=== PATIENT | male | born 1955 | race African-American/Black ===

== ENCOUNTER 2021-11-29 22:36 | Emergency (ER) | payer MEDICAID, OTHER ==
[~2021-11-29] VITALS: Ht 172.7 cm; Wt 155.0 kg
[2021-11-30 06:15] LABS: Basophils # (auto) 0 10 ^3/uL (0-0.2); Basophils % (auto) 0.5 % (0.0-2.0); Eosinophils # (auto) 0.3 10 ^3/uL (0-0.8); Eosinophils % (auto) 3.2 % (0.0-7.0); Hematocrit 41.3 % (41.0-53.0); Hemoglobin 13.9 g/dL (13.5-17.5); Lymphocytes # (auto) 2.4 10 ^3/uL (0.4-5.4); Lymphocytes % (auto) 30.5 % (10.0-50.0); Mean Corpuscular Hemoglobin 31.5 pg (28.0-32.0); Mean Corpuscular Hgb Conc. 33.7 g/dL (32.0-36.0); Mean Corpuscular Volume 93.4 fL (80.0-100.0); Monocytes # (auto) 0.5 10 ^3/uL (0-1.3); Neutrophils # (auto) 4.6 10 ^3/uL (1.6-8.6); Neutrophils % (auto) 58.8 % (37.0-80.0); Nucleated Red Blood Cells % 0.1 %; Red Blood Cells 4.42 10^6/uL (4.5-5.90); Red Cell Distribution Width 14.4 % (11.8-14.3); White Blood Cell 7.8 10^3/uL (4.4-10.8)
[2021-11-30 06:26] LABS: Potassium 4.2 mmol/L (3.5-5.1)
[2021-11-30 06:34] LABS: Albumin 2.9 g/dL (3.4-5.0); BUN/Creatinine Ratio 13.9; Bilirubin, Total 0.5 mg/dL (0.2-1.0); Calcium 8.6 mg/dL (8.5-10.1); Total Protein 6.5 g/dL (6.4-8.2)
[2021-11-30 08:40] LABS: Urine Bacteria NONE SEEN /hpf (None Seen); Urine Blood Negative /uL (Negative); Urine Mucus FEW (None Seen); Urine WBC 1 /hpf (0 - 3)
[2021-11-30] MEDS ORDERED: AZIT500T PO (12:36)
[2021-11-30] MEDS ORDERED: HYDR-4798 PO (12:36)
[2021-11-30] MEDS ORDERED: DEXT1SYP9 PO (12:36)
[2021-11-30] MEDS ORDERED: CARI250T PO (12:36)
[2021-11-30] MEDS ORDERED: ALBUAER3 IN (12:36)
[2021-11-30 13:07] VITALS: BP 148/84
== END 2021-11-30 12:38 | disposition left against medical advice (07) ==
LOC: ER 22:38 → EDBD 22:38 → ER 11-30 12:38
DX: G89.29 Other chronic pain (principal); M54.50 Low back pain, unspecified; J45.901 Unspecified asthma with (acute) exacerbation; K42.9 Umbilical hernia without obstruction or gangrene; E46 Unspecified protein-calorie malnutrition; E66.01 Morbid (severe) obesity due to excess calories; R07.89 Other chest pain; I11.0 Hypertensive heart disease with heart failure; I50.9 Heart failure, unspecified; E11.9 Type 2 diabetes mellitus without complications; E78.5 Hyperlipidemia, unspecified; F17.210 Nicotine dependence, cigarettes, uncomplicated; Z68.43 Body mass index [BMI] 50.0-59.9, adult
CPT/HCPCS: 36415; 71046; 74176; 80053; 81001; 84484; 85025

== ENCOUNTER 2021-12-06 04:24 | Emergency (ER) | payer MEDICAID ==
[~2021-12-06] VITALS: Ht 167.6 cm; Wt 147.6 kg
[~2021-12-06 04:24] MED LIST: ALBUAER3 IN; AZIT500T PO; CARI250T PO; DEXT1SYP9 PO; HYDR-4798 PO
[2021-12-06 05:12] VITALS: BP 113/63
== END 2021-12-06 07:15 | disposition left against medical advice (07) ==
LOC: ER 04:24
DX: M54.9 Dorsalgia, unspecified (principal); Z53.21 Procedure and treatment not carried out due to patient leaving prior to being seen by health care provider

== ENCOUNTER 2021-12-16 22:28 | Emergency (ER) | payer MEDICAID ==
[~2021-12-16] VITALS: Ht 167.6 cm; Wt 147.2 kg
[2021-12-17 02:25] LABS: Basophils # (auto) 0.1 10 ^3/uL (0-0.2); Basophils % (auto) 0.7 % (0.0-2.0); Eosinophils # (auto) 0.3 10 ^3/uL (0-0.8); Eosinophils % (auto) 3.2 % (0.0-7.0); Hematocrit 41.9 % (41.0-53.0); Hemoglobin 13.8 g/dL (13.5-17.5); Lymphocytes # (auto) 2.5 10 ^3/uL (0.4-5.4); Lymphocytes % (auto) 27.6 % (10.0-50.0); Mean Corpuscular Hemoglobin 30.9 pg (28.0-32.0); Mean Corpuscular Hgb Conc. 32.9 g/dL (32.0-36.0); Mean Corpuscular Volume 93.8 fL (80.0-100.0); Monocytes # (auto) 0.6 10 ^3/uL (0-1.3); Monocytes % (auto) 6.1 % (0.0-12.0); Neutrophils # (auto) 5.8 10 ^3/uL (1.6-8.6); Neutrophils % (auto) 62.4 % (37.0-80.0); Red Blood Cells 4.46 10^6/uL (4.5-5.90); Red Cell Distribution Width 14.3 % (11.8-14.3); White Blood Cell 9.2 10^3/uL (4.4-10.8)
[2021-12-17 02:46] LABS: Albumin 2.9 g/dL (3.4-5.0); BUN/Creatinine Ratio 17.5; Calcium 8.2 mg/dL (8.5-10.1); Potassium 4.3 mmol/L (3.5-5.1)
[2021-12-17 02:49] LABS: Bilirubin, Total 0.5 mg/dL (0.2-1.0); Total Protein 6.1 g/dL (6.4-8.2)
[2021-12-17] MEDS ORDERED: MORPHINE SULFATE 4 MG/ML SYR/VIAL IV ONE (03:15)
[2021-12-17 03:18] LABS: Urine Bacteria NONE SEEN /hpf (None Seen); Urine Blood Negative /uL (Negative); Urine Specific Gravity 1.015 (1.001-1.035); Urine WBC <1 /hpf (0 - 3)
[2021-12-17 03:28] VITALS: BP 146/72
== END 2021-12-17 04:47 | disposition home or self-care (01) ==
LOC: ER 22:28
DX: R06.00 Dyspnea, unspecified (principal); G89.29 Other chronic pain; M54.9 Dorsalgia, unspecified; I11.0 Hypertensive heart disease with heart failure; I50.9 Heart failure, unspecified; E11.9 Type 2 diabetes mellitus without complications; E78.5 Hyperlipidemia, unspecified; J45.909 Unspecified asthma, uncomplicated; F17.210 Nicotine dependence, cigarettes, uncomplicated; Z79.2 Long term (current) use of antibiotics; Z79.899 Other long term (current) drug therapy; Z88.8 Allergy status to other drugs, medicaments and biological substances
CPT/HCPCS: 36415; 71045; 80053; 81001; 83880; 84484; 85025; 93005

== ENCOUNTER 2021-12-27 22:01 | Emergency (ER) | payer MEDICAID ==
[~2021-12-27] VITALS: Ht 167.6 cm; Wt 146.4 kg
[2021-12-27 22:35] VITALS: BP 113/63
== END 2021-12-28 01:51 | disposition home or self-care (01) ==
LOC: ER 22:06
DX: S40.021A Contusion of right upper arm, initial encounter (principal); I11.0 Hypertensive heart disease with heart failure; I50.9 Heart failure, unspecified; E78.5 Hyperlipidemia, unspecified; J45.909 Unspecified asthma, uncomplicated; F17.210 Nicotine dependence, cigarettes, uncomplicated; Z88.6 Allergy status to analgesic agent; W01.0XXA Fall on same level from slipping, tripping and stumbling without subsequent striking against object, initial encounter; Y93.89 Activity, other specified; Y92.89 Other specified places as the place of occurrence of the external cause; Y99.8 Other external cause status
CPT/HCPCS: 73090; 73110; 73130

== ENCOUNTER 2022-01-03 20:43 | Emergency (ER) | payer MEDICAID ==
[~2022-01-03] VITALS: Ht 167.6 cm; Wt 147.0 kg
[2022-01-04] MEDS ORDERED: ONDANSETRON ODT 4 MG TAB PO ONE (02:30)
[2022-01-04] MEDS ORDERED: HYDROcodone-ACET 10/325MG TAB PO ONE (02:30)
[2022-01-04 05:00] VITALS: BP 135/78
== END 2022-01-04 06:07 | disposition home or self-care (01) ==
LOC: ER 20:43
DX: M54.50 Low back pain, unspecified (principal); R05.9 Cough, unspecified; R07.89 Other chest pain; I11.0 Hypertensive heart disease with heart failure; I50.9 Heart failure, unspecified; E11.9 Type 2 diabetes mellitus without complications; E78.5 Hyperlipidemia, unspecified; F17.210 Nicotine dependence, cigarettes, uncomplicated; Z79.2 Long term (current) use of antibiotics; Z79.899 Other long term (current) drug therapy; Z88.8 Allergy status to other drugs, medicaments and biological substances
CPT/HCPCS: 71045; 99283; Q0162

== ENCOUNTER 2022-04-20 23:43 | Inpatient (IN) | payer MEDICAID ==
[~2022-04-20] VITALS: Ht 320 cm; Wt 123.0 kg
[2022-04-21 00:02] LABS: Basophils # (auto) 0.1 10 ^3/uL (0-0.2); Basophils % (auto) 0.5 % (0.0-2.0); Eosinophils # (auto) 0.1 10 ^3/uL (0-0.8); Eosinophils % (auto) 0.7 % (0.0-7.0); Hematocrit 45.6 % (41.0-53.0); Hemoglobin 15.1 g/dL (13.5-17.5); Lymphocytes # (auto) 2.2 10 ^3/uL (0.4-5.4); Lymphocytes % (auto) 18.1 % (10.0-50.0); Mean Corpuscular Hemoglobin 31.2 pg (28.0-32.0); Mean Corpuscular Hgb Conc. 33.1 g/dL (32.0-36.0); Mean Corpuscular Volume 94.3 fL (80.0-100.0); Monocytes # (auto) 0.9 10 ^3/uL (0-1.3); Monocytes % (auto) 7.6 % (0.0-12.0); Neutrophils % (auto) 73.1 % (37.0-80.0); Red Blood Cells 4.84 10^6/uL (4.5-5.90); Red Cell Distribution Width 13.7 % (11.8-14.3); White Blood Cell 12.4 10^3/uL (4.4-10.8)
[2022-04-21 00:17] LABS: INR 0.95 (0.9-1.15); Partial Thromboplastin Time 34.8 sec (24.6-33.4)
[2022-04-21 00:20] LABS: Albumin 3.1 g/dL (3.4-5.0); Calcium 8.9 mg/dL (8.5-10.1); Magnesium 2.3 mg/dL (1.6-2.6); Potassium 4.2 mmol/L (3.5-5.1)
[2022-04-21 00:23] LABS: Bilirubin, Total 0.4 mg/dL (0.2-1.0); Total Protein 6.7 g/dL (6.4-8.2)
[2022-04-21] MEDS ORDERED: FUROSEMIDE 100 MG/10ML VIAL IV ONE (01:15)
[2022-04-21] MEDS ORDERED: ALBUTEROL SULF 2.5 MG/0.5ML(0.5%) NEB SOLN NEB ONE (01:15)
[2022-04-21] MEDS ORDERED: methylPREDNISolone SOD SUCC 125 MG/2 ML VL IV ONE (01:15)
[2022-04-21] MEDS ORDERED: IPRATROPIUM BROM 0.5 MG/2.5ML INH SOL NEB ONE (01:15)
[2022-04-21] MEDS ORDERED: ALBUTEROL MEDNEB 2.5 mg/3ml NEB ONE (01:18)
[2022-04-21] MEDS ORDERED: ALBUTEROL SULF 2.5 MG/0.5ML(0.5%) NEB SOLN NEB PRN (03:30)
[2022-04-21] MEDS ORDERED: ACETAMINOPHEN 325 MG TAB PO PRN (03:30)
[2022-04-21] MEDS ORDERED: IPRATROPIUM BROM 0.5 MG/2.5ML INH SOL NEB PRN (03:30)
[2022-04-21] MEDS ORDERED: ONDANSETRON HCL 4 MG/2 ML VIAL IV PRN (03:30)
[2022-04-21] MEDS ORDERED: DEXTROSE (50%) 50ML SYRG IV PRN (03:30)
[2022-04-21 04:16] LABS: Basophils # (auto) 0.2 10 ^3/uL (0-0.2); Basophils % (auto) 1.4 % (0.0-2.0); Eosinophils # (auto) 0.1 10 ^3/uL (0-0.8); Eosinophils % (auto) 1.2 % (0.0-7.0); Hematocrit 43.5 % (41.0-53.0); Hemoglobin 14.8 g/dL (13.5-17.5); Lymphocytes # (auto) 3.1 10 ^3/uL (0.4-5.4); Lymphocytes % (auto) 27.6 % (10.0-50.0); Mean Corpuscular Hemoglobin 31.5 pg (28.0-32.0); Mean Corpuscular Volume 92.9 fL (80.0-100.0); Monocytes # (auto) 0.7 10 ^3/uL (0-1.3); Monocytes % (auto) 6.2 % (0.0-12.0); Neutrophils # (auto) 7.1 10 ^3/uL (1.6-8.6); Neutrophils % (auto) 63.6 % (37.0-80.0); Nucleated Red Blood Cells % 0.1 %; Red Blood Cells 4.69 10^6/uL (4.5-5.90); Red Cell Distribution Width 13.8 % (11.8-14.3); White Blood Cell 11.1 10^3/uL (4.4-10.8)
[2022-04-21] MEDS ORDERED: NITROGLYCERIN 0.4 MG SL TAB SL PRN (06:00)
[2022-04-21] MEDS ORDERED: cefTRIAXone 1GM/50ML D5W 50 ML IV ONE (06:00)
[2022-04-21] MEDS ORDERED: MORPHINE SULFATE INJ 2 MG/ml SYRG IV PRN (06:00)
[2022-04-21 06:50] LABS: Hematocrit 44.8 % (41.0-53.0); Hemoglobin 15.3 g/dL (13.5-17.5); Mean Corpuscular Hemoglobin 31.7 pg (28.0-32.0); Mean Corpuscular Hgb Conc. 34.2 g/dL (32.0-36.0); Mean Corpuscular Volume 92.9 fL (80.0-100.0); Red Blood Cells 4.83 10^6/uL (4.5-5.90); Red Cell Distribution Width 13.6 % (11.8-14.3); White Blood Cell 11.2 10^3/uL (4.4-10.8)
[2022-04-21 06:57] LABS: Albumin 3.1 g/dL (3.4-5.0); Calcium 8.7 mg/dL (8.5-10.1); Potassium 4.6 mmol/L (3.5-5.1)
[2022-04-21 06:59] LABS: Bilirubin, Total 0.4 mg/dL (0.2-1.0); Total Protein 6.8 g/dL (6.4-8.2)
[2022-04-21 07:38] LABS: Basophils % (manual) 0 (0.0-2.0); Blast Cells 0; Eosinophils % (manual) 0 (0-7); Metamyelocytes % 0; Myelocytes % 0; Promyelocytes % 0; Reactive Lymphocytes 0
[2022-04-21] MEDS: SODIUM CHLOR 0.9% PF (SALINE LOCK) 10ML VIAL/SYR IV SCH ×2 (09:18→14:42)
[2022-04-21] MEDS: cefTRIAXone 1GM/50ML D5W 50 ML IV SCH (09:31)
[2022-04-21] MEDS: ACCU-CHEK COMFORT CURVE STRIP VI SCH ×3 (09:32→18:38)
[2022-04-21] MEDS: methylPREDNISolone SOD SUCC 40 MG/ML VL IV SCH ×2 (09:34→14:46)
[2022-04-21] MEDS: InsuLIN REG 1unit/0.01ml Soln (100units/ml) SC SCH ×3 (09:36→18:46)
[2022-04-21] MEDS ORDERED: FAMOTIDINE (10MG/ML) 2ML VL IV SCH (10:00)
[2022-04-21] MEDS: FUROSEMIDE 40 MG/4 ML VIAL IV SCH (10:37)
[2022-04-21] MEDS: ENOXAPARIN SOD 40 MG/0.4 ML SYRINGE SC SCH (10:37)
[2022-04-21] MEDS: HYDROcodone-ACET 5/325MG TAB PO PRN ×2 (11:20→18:46)
[2022-04-21 14:35] LABS: Band Neutrophils % (manual) 10; Lymphocytes % (manual) 6 (10.0-50.0); Monocytes % (manual) 3 (0-12)
[2022-04-21] MEDS: guaiFENesin 200 MG/10 ML UD PO SCH (18:45)
[2022-04-22] VITALS (8 sets, daily range): BP systolic 124–146; BP diastolic 55–81
[2022-04-22] MEDS: HYDROcodone-ACET 5/325MG TAB PO PRN ×3 (00:28→22:08)
[2022-04-22] MEDS: ACCU-CHEK COMFORT CURVE STRIP VI SCH ×5 (00:29→22:09)
[2022-04-22] MEDS: methylPREDNISolone SOD SUCC 40 MG/ML VL IV SCH ×4 (00:29→22:08)
[2022-04-22] MEDS: guaiFENesin 200 MG/10 ML UD PO SCH ×5 (00:29→23:53)
[2022-04-22] MEDS: InsuLIN REG 1unit/0.01ml Soln (100units/ml) SC SCH ×5 (00:34→22:12)
[2022-04-22] MEDS: SODIUM CHLOR 0.9% PF (SALINE LOCK) 10ML VIAL/SYR IV SCH ×4 (00:38→22:09)
[2022-04-22] MEDS: TROLAMINE SALICYLATE 10% TOP CREAM TOP SCH ×3 (00:38→22:09)
[2022-04-22] MEDS ORDERED: FUR20T PO (01:44)
[2022-04-22] MEDS ORDERED: METF-370 PO (01:44)
[2022-04-22] MEDS ORDERED: ATOR40TA52 PO (01:44)
[2022-04-22] MEDS ORDERED: CARI350T23 PO (01:44)
[2022-04-22] MEDS ORDERED: ASPI1TAB20 PO (01:44)
[2022-04-22] MEDS ORDERED: ALBU108A5 INH (01:45)
[2022-04-22] MEDS ORDERED: IPRAAER6 INH (01:45)
[2022-04-22] MEDS: FUROSEMIDE 40 MG/4 ML VIAL IV SCH (08:43)
[2022-04-22] MEDS: cefTRIAXone 1GM/50ML D5W 50 ML IV SCH (08:43)
[2022-04-22] MEDS: ENOXAPARIN SOD 40 MG/0.4 ML SYRINGE SC SCH (08:44)
[2022-04-22 08:47] LABS: Chloride 105 mmol/L (98-107); Potassium 4.9 mmol/L (3.5-5.1); Sodium 140 mmol/L (136-145)
[2022-04-22 09:11] LABS: Alanine Aminotransferase 13 U/L (16-61); Alkaline Phosphatase 96 U/L (45-117); Anion Gap 6 (5-15); Aspartate Aminotransferase < 3 U/L (15-37); Bilirubin, Total 0.4 mg/dL (0.2-1.0); Blood Urea Nitrogen 23 mg/dL (7-18); Calcium 8.6 mg/dL (8.5-10.1); Carbon Dioxide 29 mmol/L (21-32); GFR African American 121 mL/min; GFR Non-African American 100 mL/min; Glucose 179 mg/dL (74-106); Total Protein 6.2 g/dL (6.4-8.2)
[2022-04-22] MEDS ORDERED: ALBUTEROL MEDNEB 2.5 mg/3ml NEB ONE (09:19)
[2022-04-22] MEDS: DOCUSATE SOD 100 MG CAP PO PRN ×2 (09:36→23:57)
[2022-04-22 09:55] LABS: Hematocrit 46.4 % (41.0-53.0); Mean Corpuscular Hemoglobin 30.3 pg (28.0-32.0); Mean Corpuscular Hgb Conc. 32.3 g/dL (32.0-36.0); Mean Corpuscular Volume 93.9 fL (80.0-100.0); Red Blood Cells 4.94 10^6/uL (4.5-5.90); Red Cell Distribution Width 13.9 % (11.8-14.3); White Blood Cell 13.6 10^3/uL (4.4-10.8)
[2022-04-22 09:57] LABS: Basophils % (manual) 0 (0.0-2.0); Blast Cells 0; Eosinophils % (manual) 0 (0-7); Metamyelocytes % 0; Monocytes % (manual) 0 (0-12); Myelocytes % 0; Promyelocytes % 0; Reactive Lymphocytes 0
[2022-04-22 12:13] LABS: Band Neutrophils % (manual) 11; Lymphocytes % (manual) 4 (10.0-50.0)
[2022-04-22] MEDS ORDERED: AMOX500T86 PO (14:34)
[2022-04-22] MEDS ORDERED: PANT40T PO (14:34)
[2022-04-22] MEDS ORDERED: TROL10CR33 EX (14:34)
[2022-04-22] MEDS ORDERED: PRED20TA2 PO (14:34)
[2022-04-23] MEDS ORDERED: ALBUTEROL MEDNEB 2.5 mg/3ml NEB ONE (00:16)
[2022-04-23 04:53] VITALS: BP 144/53
[2022-04-23] MEDS: guaiFENesin 200 MG/10 ML UD PO SCH (05:51)
[2022-04-23] MEDS: methylPREDNISolone SOD SUCC 40 MG/ML VL IV SCH (05:51)
[2022-04-23] MEDS: ACCU-CHEK COMFORT CURVE STRIP VI SCH (06:01)
[2022-04-23] MEDS: HYDROcodone-ACET 5/325MG TAB PO PRN ×2 (06:01→10:11)
[2022-04-23] MEDS: SODIUM CHLOR 0.9% PF (SALINE LOCK) 10ML VIAL/SYR IV SCH (06:01)
[2022-04-23] MEDS: InsuLIN REG 1unit/0.01ml Soln (100units/ml) SC SCH (06:05)
[2022-04-23 08:29] VITALS: BP 126/102
[2022-04-23] MEDS: cefTRIAXone 1GM/50ML D5W 50 ML IV SCH ×2 (10:08→10:10)
[2022-04-23] MEDS: ENOXAPARIN SOD 40 MG/0.4 ML SYRINGE SC SCH (10:09)
[2022-04-23] MEDS: TROLAMINE SALICYLATE 10% TOP CREAM TOP SCH (10:10)
[2022-04-23] MEDS: FUROSEMIDE 40 MG/4 ML VIAL IV SCH (10:10)
[2022-04-23] MEDS: DOCUSATE SOD 100 MG CAP PO PRN (10:15)
== END 2022-04-23 13:38 | disposition home or self-care (01) | DRG 140 ==
LOC: ER 23:43 → TELE 04-21 06:04 → TELE-WESTW 04-21 22:48
PROVIDERS: ADMIT Nurse Practitioner Family; ATTEND Internal Medicine
DX: J44.0 Chronic obstructive pulmonary disease with (acute) lower respiratory infection (principal); I11.0 Hypertensive heart disease with heart failure; I50.9 Heart failure, unspecified; E11.9 Type 2 diabetes mellitus without complications; R07.89 Other chest pain; J20.9 Acute bronchitis, unspecified; Z20.822 Contact with and (suspected) exposure to COVID-19; E66.01 Morbid (severe) obesity due to excess calories; E78.5 Hyperlipidemia, unspecified; F17.210 Nicotine dependence, cigarettes, uncomplicated; E78.00 Pure hypercholesterolemia, unspecified; J44.1 Chronic obstructive pulmonary disease with (acute) exacerbation; K21.9 Gastro-esophageal reflux disease without esophagitis; Z68.1 Body mass index [BMI] 19.9 or less, adult; Z88.6 Allergy status to analgesic agent; Z88.8 Allergy status to other drugs, medicaments and biological substances
CPT/HCPCS: 36415; 36600; 76705; 80053; 82805; 82962; 83735; 83880; 84484; 85007; 85025; 85027; 85610; 85730; 87426; 93005; 94640; 96374; 96375; G0378; J0696; J1815; J3490

== ENCOUNTER 2022-04-27 21:06 | Emergency (ER) | payer MEDICAID ==
[~2022-04-27] VITALS: Ht 167.6 cm; Wt 65.8 kg
[~2022-04-27 21:06] MED LIST changes: +ALBU108A5 INH; +AMOX500T86 PO; +ASPI1TAB20 PO; +ATOR40TA52 PO; -AZIT500T PO; +CARI350T23 PO; +FUR20T PO; +IPRAAER6 INH; +METF-370 PO; +PANT40T PO; +PRED20TA2 PO; +TROL10CR33 EX
[2022-04-27] MEDS ORDERED: HYDROcodone-ACET 10/325MG TAB PO ONE (22:15)
[2022-04-27 23:50] VITALS: BP 121/68
== END 2022-04-27 23:53 | disposition home or self-care (01) ==
LOC: ER 21:06
DX: S63.501A Unspecified sprain of right wrist, initial encounter (principal); I11.0 Hypertensive heart disease with heart failure; I50.9 Heart failure, unspecified; J44.9 Chronic obstructive pulmonary disease, unspecified; E11.9 Type 2 diabetes mellitus without complications; E78.5 Hyperlipidemia, unspecified; F17.210 Nicotine dependence, cigarettes, uncomplicated; W01.0XXA Fall on same level from slipping, tripping and stumbling without subsequent striking against object, initial encounter; Y93.89 Activity, other specified; Y92.89 Other specified places as the place of occurrence of the external cause; Y99.8 Other external cause status
CPT/HCPCS: 29125; 73110

== ENCOUNTER 2022-04-30 21:46 | Emergency (ER) | payer MEDICAID ==
[~2022-04-30] VITALS: Ht 167.6 cm; Wt 145.0 kg
[2022-04-30 22:45] VITALS: BP 119/65
[2022-04-30] MEDS ORDERED: HYDROcodone-ACET 10/325MG TAB PO ONE (23:00)
== END 2022-05-01 01:31 | disposition home or self-care (01) ==
LOC: ER 21:48
DX: G89.29 Other chronic pain (principal); M54.50 Low back pain, unspecified; I11.0 Hypertensive heart disease with heart failure; I50.9 Heart failure, unspecified; J44.9 Chronic obstructive pulmonary disease, unspecified; E11.9 Type 2 diabetes mellitus without complications; E78.5 Hyperlipidemia, unspecified; Z88.6 Allergy status to analgesic agent

== ENCOUNTER 2022-05-15 22:38 | Inpatient (IN) | payer MEDICAID ==
[~2022-05-15] VITALS: Ht 167.6 cm; Wt 145.8 kg
[2022-05-16 00:13] LABS: Basophils # (auto) 0.1 10 ^3/uL (0-0.2); Basophils % (auto) 0.6 % (0.0-2.0); Eosinophils # (auto) 0.3 10 ^3/uL (0-0.8); Eosinophils % (auto) 2.6 % (0.0-7.0); Hemoglobin 14.5 g/dL (13.5-17.5); Lymphocytes # (auto) 2.7 10 ^3/uL (0.4-5.4); Lymphocytes % (auto) 22.3 % (10.0-50.0); Mean Corpuscular Hemoglobin 30.9 pg (28.0-32.0); Mean Corpuscular Volume 93.7 fL (80.0-100.0); Monocytes # (auto) 0.8 10 ^3/uL (0-1.3); Monocytes % (auto) 6.2 % (0.0-12.0); Neutrophils # (auto) 8.3 10 ^3/uL (1.6-8.6); Neutrophils % (auto) 68.3 % (37.0-80.0); Nucleated Red Blood Cells % 0.1 %; Red Blood Cells 4.69 10^6/uL (4.5-5.90); White Blood Cell 12.2 10^3/uL (4.4-10.8)
[2022-05-16 00:21] LABS: Albumin 2.9 g/dL (3.4-5.0); BUN/Creatinine Ratio 15.9; Calcium 9.5 mg/dL (8.5-10.1)
[2022-05-16 00:31] LABS: Bilirubin, Total 0.4 mg/dL (0.2-1.0)
[2022-05-16] MEDS ORDERED: methylPREDNISolone SOD SUCC 125 MG/2 ML VL IV ONE (03:15)
[2022-05-16] MEDS ORDERED: FUROSEMIDE 20 MG/2 ML VIAL IV ONE (03:15)
[2022-05-16] MEDS ORDERED: TEMAZEPAM 15 MG CAP PO PRN (07:00)
[2022-05-16] MEDS: InsuLIN REG 1unit/0.01ml Soln (100units/ml) SC SCH ×4 (07:00→22:42)
[2022-05-16] MEDS ORDERED: DEXTROSE (50%) 50ML SYRG IV PRN (07:00)
[2022-05-16] MEDS: ACCU-CHEK COMFORT CURVE STRIP VI SCH ×4 (07:00→22:38)
[2022-05-16] MEDS ORDERED: ONDANSETRON HCL 4 MG/2 ML VIAL IV PRN (07:00)
[2022-05-16] MEDS ORDERED: ALBUTEROL MEDNEB 2.5 mg/3ml NEB ONE (08:29)
[2022-05-16] MEDS: ASPirin 81 mg TAB PO SCH (09:37)
[2022-05-16] MEDS: PANTOPRAZOLE 40 MG TAB PO SCH (09:38)
[2022-05-16] MEDS: LISINOPRIL 5 MG TAB PO SCH (09:38)
[2022-05-16] MEDS: ENOXAPARIN SOD 40 MG/0.4 ML SYRINGE SC SCH (09:38)
[2022-05-16] MEDS: FUROSEMIDE 40 MG TAB PO SCH (09:38)
[2022-05-16 10:05] LABS: Magnesium 2.5 mg/dL (1.6-2.6)
[2022-05-16 11:05] VITALS: BP 132/80
[2022-05-16] MEDS ORDERED: ADENOSINE 123 MG in GIVE UN-DILUTED 0 ML IV STA (14:02)
[2022-05-16 14:42] VITALS: BP 151/59
[2022-05-16] MEDS: HYDROcodone-ACET 10/325MG TAB PO PRN (20:40)
[2022-05-16] MEDS: ATORVASTATIN 20 MG TAB PO SCH (22:33)
[2022-05-17] VITALS (7 sets, daily range): BP systolic 104–135; BP diastolic 45–78
[2022-05-17 06:09] LABS: Basophils # (auto) 0 10 ^3/uL (0-0.2); Basophils % (auto) 0.1 % (0.0-2.0); Eosinophils # (auto) 0 10 ^3/uL (0-0.8); Eosinophils % (auto) 0.2 % (0.0-7.0); Hematocrit 41.5 % (41.0-53.0); Hemoglobin 13.7 g/dL (13.5-17.5); Lymphocytes # (auto) 1.5 10 ^3/uL (0.4-5.4); Lymphocytes % (auto) 9.9 % (10.0-50.0); Mean Corpuscular Hemoglobin 30.7 pg (28.0-32.0); Mean Corpuscular Hgb Conc. 33.1 g/dL (32.0-36.0); Mean Corpuscular Volume 92.7 fL (80.0-100.0); Monocytes # (auto) 0.9 10 ^3/uL (0-1.3); Monocytes % (auto) 6.2 % (0.0-12.0); Neutrophils # (auto) 12.8 10 ^3/uL (1.6-8.6); Neutrophils % (auto) 83.6 % (37.0-80.0); Red Blood Cells 4.48 10^6/uL (4.5-5.90); Red Cell Distribution Width 13.7 % (11.8-14.3); White Blood Cell 15.3 10^3/uL (4.4-10.8)
[2022-05-17] MEDS: InsuLIN REG 1unit/0.01ml Soln (100units/ml) SC SCH ×4 (06:26→21:39)
[2022-05-17] MEDS: HYDROcodone-ACET 10/325MG TAB PO PRN ×3 (06:26→20:11)
[2022-05-17] MEDS: ACCU-CHEK COMFORT CURVE STRIP VI SCH ×4 (06:26→21:43)
[2022-05-17 06:31] LABS: Calcium 8.7 mg/dL (8.5-10.1); Potassium 4.3 mmol/L (3.5-5.1)
[2022-05-17 06:33] LABS: BUN/Creatinine Ratio 25.9
[2022-05-17] MEDS: ASPirin 81 mg TAB PO SCH (09:18)
[2022-05-17] MEDS: PANTOPRAZOLE 40 MG TAB PO SCH (09:18)
[2022-05-17] MEDS: FUROSEMIDE 40 MG TAB PO SCH (09:18)
[2022-05-17] MEDS: LISINOPRIL 5 MG TAB PO SCH (09:18)
[2022-05-17] MEDS: ENOXAPARIN SOD 40 MG/0.4 ML SYRINGE SC SCH (09:19)
[2022-05-17] MEDS: ATORVASTATIN 20 MG TAB PO SCH (21:39)
[2022-05-17] MEDS ORDERED: ALBUTEROL MEDNEB 2.5 mg/3ml NEB ONE (22:06)
[2022-05-17] MEDS: ALBUTEROL SULF 2.5 MG/0.5ML(0.5%) NEB SOLN NEB PRN (22:12)
[2022-05-18] MEDS: HYDROcodone-ACET 10/325MG TAB PO PRN ×3 (03:45→21:58)
[2022-05-18 05:02] VITALS: BP 105/51
[2022-05-18] MEDS: ACCU-CHEK COMFORT CURVE STRIP VI SCH ×4 (06:12→22:00)
[2022-05-18] MEDS: InsuLIN REG 1unit/0.01ml Soln (100units/ml) SC SCH ×4 (06:13→22:02)
[2022-05-18 08:30] VITALS: BP 104/53
[2022-05-18] MEDS: ASPirin 81 mg TAB PO SCH (08:31)
[2022-05-18] MEDS: ENOXAPARIN SOD 40 MG/0.4 ML SYRINGE SC SCH (08:31)
[2022-05-18] MEDS: PANTOPRAZOLE 40 MG TAB PO SCH (08:31)
[2022-05-18] MEDS: FUROSEMIDE 40 MG TAB PO SCH (08:33)
[2022-05-18] MEDS: LISINOPRIL 5 MG TAB PO SCH (08:33)
[2022-05-18 09:00] VITALS: BP 134/54
[2022-05-18 13:00] VITALS: BP 137/70
[2022-05-18 14:16] LABS: Hepatitis C Antibody Negative (Negative)
[2022-05-18] MEDS: ALBUTEROL SULF 2.5 MG/0.5ML(0.5%) NEB SOLN NEB PRN (19:22)
[2022-05-18] MEDS ORDERED: ALBUTEROL MEDNEB 2.5 mg/3ml NEB ONE (19:25)
[2022-05-18 20:00] VITALS: BP 104/53
[2022-05-18] MEDS: ATORVASTATIN 20 MG TAB PO SCH (21:58)
[2022-05-18 22:00] VITALS: BP 114/54
[2022-05-19] VITALS (7 sets, daily range): BP systolic 101–145; BP diastolic 45–65
[2022-05-19 05:26] LABS: Basophils # (auto) 0 10 ^3/uL (0-0.2); Basophils % (auto) 0.2 % (0.0-2.0); Eosinophils # (auto) 0.2 10 ^3/uL (0-0.8); Eosinophils % (auto) 1.9 % (0.0-7.0); Hematocrit 42.4 % (41.0-53.0); Lymphocytes # (auto) 2.5 10 ^3/uL (0.4-5.4); Lymphocytes % (auto) 27.7 % (10.0-50.0); Mean Corpuscular Hemoglobin 30.7 pg (28.0-32.0); Mean Corpuscular Volume 93.1 fL (80.0-100.0); Monocytes # (auto) 0.6 10 ^3/uL (0-1.3); Monocytes % (auto) 6.9 % (0.0-12.0); Neutrophils # (auto) 5.7 10 ^3/uL (1.6-8.6); Neutrophils % (auto) 63.3 % (37.0-80.0); Red Blood Cells 4.56 10^6/uL (4.5-5.90); Red Cell Distribution Width 13.8 % (11.8-14.3); White Blood Cell 8.9 10^3/uL (4.4-10.8)
[2022-05-19 05:38] LABS: BUN/Creatinine Ratio 24.7; Calcium 8.1 mg/dL (8.5-10.1); Potassium 4.4 mmol/L (3.5-5.1)
[2022-05-19 05:42] LABS: INR 0.97 (0.9-1.15); Partial Thromboplastin Time 34.5 sec (24.6-33.4)
[2022-05-19] MEDS: ACCU-CHEK COMFORT CURVE STRIP VI SCH ×2 (06:00→11:13)
[2022-05-19] MEDS: HYDROcodone-ACET 10/325MG TAB PO PRN ×2 (06:01→12:26)
[2022-05-19] MEDS: InsuLIN REG 1unit/0.01ml Soln (100units/ml) SC SCH ×2 (06:01→11:13)
[2022-05-19] MEDS: PANTOPRAZOLE 40 MG TAB PO SCH (09:45)
[2022-05-19] MEDS: FUROSEMIDE 40 MG TAB PO SCH (09:45)
[2022-05-19] MEDS: ASPirin 81 mg TAB PO SCH (09:45)
[2022-05-19] MEDS: ENOXAPARIN SOD 40 MG/0.4 ML SYRINGE SC SCH (09:46)
[2022-05-19] MEDS: LISINOPRIL 5 MG TAB PO SCH (09:46)
== END 2022-05-19 14:30 | disposition home or self-care (01) | DRG 198 ==
LOC: EDBD → ER 22:38 → OVERFLOW 05-16 06:47 → CENTRAL 05-16 22:15
PROVIDERS: ADMIT Nurse Practitioner; ATTEND Family Medicine
DX: I25.10 Atherosclerotic heart disease of native coronary artery without angina pectoris (principal); I11.0 Hypertensive heart disease with heart failure; J44.1 Chronic obstructive pulmonary disease with (acute) exacerbation; I50.9 Heart failure, unspecified; E11.9 Type 2 diabetes mellitus without complications; E66.01 Morbid (severe) obesity due to excess calories; I89.0 Lymphedema, not elsewhere classified; Z20.822 Contact with and (suspected) exposure to COVID-19; E78.5 Hyperlipidemia, unspecified; G89.4 Chronic pain syndrome; Z68.43 Body mass index [BMI] 50.0-59.9, adult; Z79.84 Long term (current) use of oral hypoglycemic drugs; Z88.6 Allergy status to analgesic agent
CPT/HCPCS: 36415; 78452; 80048; 80053; 80061; 82962; 83036; 83735; 83880; 84443; 84484; 85025; 85379; 85610; 85730; 86803; 86850; 86900; 86901; 87081; 87340; 87426; 93005; 93017; 93306; 94640; 96365; 96372; 96375; G0378; J0153; J1815

== ENCOUNTER 2022-05-22 20:02 | Inpatient (IN) | payer MEDICAID ==
[~2022-05-22] VITALS: Ht 167.6 cm; Wt 145.0 kg
[2022-05-22 21:02] LABS: Basophils # (auto) 0 10 ^3/uL (0-0.2); Basophils % (auto) 0.2 % (0.0-2.0); Eosinophils # (auto) 0.2 10 ^3/uL (0-0.8); Eosinophils % (auto) 1.9 % (0.0-7.0); Hematocrit 41.3 % (41.0-53.0); Hemoglobin 13.5 g/dL (13.5-17.5); Lymphocytes # (auto) 2.6 10 ^3/uL (0.4-5.4); Mean Corpuscular Hemoglobin 30.7 pg (28.0-32.0); Mean Corpuscular Hgb Conc. 32.6 g/dL (32.0-36.0); Monocytes # (auto) 0.6 10 ^3/uL (0-1.3); Monocytes % (auto) 5.4 % (0.0-12.0); Neutrophils # (auto) 7.5 10 ^3/uL (1.6-8.6); Neutrophils % (auto) 68.5 % (37.0-80.0); Red Blood Cells 4.39 10^6/uL (4.5-5.90); Red Cell Distribution Width 13.9 % (11.8-14.3)
[2022-05-22 21:08] LABS: Albumin 2.7 g/dL (3.4-5.0); Calcium 7.9 mg/dL (8.5-10.1)
[2022-05-22 21:10] LABS: BUN/Creatinine Ratio 20.5
[2022-05-22 21:13] LABS: Bilirubin, Total 0.3 mg/dL (0.2-1.0); Total Protein 6.4 g/dL (6.4-8.2)
[2022-05-23] MEDS ORDERED: DEXTROSE (50%) 50ML SYRG IV PRN (02:30)
[2022-05-23] MEDS ORDERED: ONDANSETRON HCL 4 MG/2 ML VIAL IV PRN (02:30)
[2022-05-23] MEDS ORDERED: ALBUTEROL SULF 2.5 MG/0.5ML(0.5%) NEB SOLN NEB PRN (02:30)
[2022-05-23] MEDS ORDERED: ACETAMINOPHEN 325 MG TAB PO PRN (02:30)
[2022-05-23] MEDS ORDERED: MORPHINE SULFATE INJ 2 MG/ml SYRG IV PRN (02:30)
[2022-05-23] MEDS ORDERED: NITROGLYCERIN 0.4 MG SL TAB SL PRN (02:30)
[2022-05-23 03:00] VITALS: BP 141/62
[2022-05-23] MEDS ORDERED: ALBUTEROL MEDNEB 2.5 mg/3ml NEB ONE (05:38)
[2022-05-23] MEDS: ACCU-CHEK COMFORT CURVE STRIP VI SCH ×4 (07:14→23:15)
[2022-05-23] MEDS: InsuLIN REG 1unit/0.01ml Soln (100units/ml) SC SCH ×4 (07:30→23:15)
[2022-05-23] MEDS ORDERED: ALBUTEROL MEDNEB 2.5 mg/3ml NEB NEB PRN (11:45)
[2022-05-23] MEDS: ENOXAPARIN SOD 40 MG/0.4 ML SYRINGE SC SCH (12:09)
[2022-05-23] MEDS: PANTOPRAZOLE 40 MG TAB PO SCH (12:09)
[2022-05-23] MEDS: CARVEDILOL 3.125 MG TAB PO SCH ×2 (12:10→23:14)
[2022-05-23] MEDS: LISINOPRIL 20 MG TAB PO SCH (12:10)
[2022-05-23] MEDS: FUROSEMIDE 20 MG TAB PO SCH (12:10)
[2022-05-23 15:17] LABS: Urine WBC None Seen /hpf (0 - 3)
[2022-05-23 15:26] LABS: Urine Bacteria NONE SEEN /hpf (None Seen); Urine Blood Negative /uL (Negative); Urine Specific Gravity 1.011 (1.001-1.035)
[2022-05-23] MEDS ORDERED: CLOPIDOGREL BISULFATE 75 MG TAB PO ONE (17:00)
[2022-05-23] MEDS ORDERED: HYDROcodone-ACET 10/325MG TAB PO PRN ×2 (17:45→22:00)
[2022-05-23] MEDS: CARISOPRODOL 350 MG TAB PO SCH ×2 (18:27→23:22)
[2022-05-23] MEDS: HYDROcodone-ACET 10/325MG TAB PO PRN ×2 (18:28→23:22)
[2022-05-23] MEDS ORDERED: ATORVASTATIN 20 MG TAB PO SCH (22:00)
[2022-05-24] VITALS (7 sets, daily range): BP systolic 111–128; BP diastolic 57–68
[2022-05-24 05:08] LABS: Basophils # (auto) 0.1 10 ^3/uL (0-0.2); Basophils % (auto) 0.7 % (0.0-2.0); Eosinophils # (auto) 0.1 10 ^3/uL (0-0.8); Eosinophils % (auto) 1.6 % (0.0-7.0); Hematocrit 37.2 % (41.0-53.0); Hemoglobin 12.1 g/dL (13.5-17.5); Lymphocytes # (auto) 2.1 10 ^3/uL (0.4-5.4); Lymphocytes % (auto) 22.8 % (10.0-50.0); Mean Corpuscular Hemoglobin 30.3 pg (28.0-32.0); Mean Corpuscular Hgb Conc. 32.5 g/dL (32.0-36.0); Mean Corpuscular Volume 93.3 fL (80.0-100.0); Monocytes # (auto) 0.6 10 ^3/uL (0-1.3); Neutrophils # (auto) 6.3 10 ^3/uL (1.6-8.6); Neutrophils % (auto) 67.9 % (37.0-80.0); Nucleated Red Blood Cells % 0.1 %; Red Blood Cells 3.99 10^6/uL (4.5-5.90); Red Cell Distribution Width 13.8 % (11.8-14.3); White Blood Cell 9.3 10^3/uL (4.4-10.8)
[2022-05-24] MEDS: HYDROcodone-ACET 10/325MG TAB PO PRN (05:08)
[2022-05-24 05:22] LABS: INR 0.99 (0.9-1.15); Partial Thromboplastin Time 35.9 sec (24.6-33.4)
[2022-05-24 05:26] LABS: Calcium 7.2 mg/dL (8.5-10.1)
[2022-05-24 05:29] LABS: Albumin 2.3 g/dL (3.4-5.0); BUN/Creatinine Ratio 21.1
[2022-05-24 05:32] LABS: Bilirubin, Total 0.5 mg/dL (0.2-1.0); Total Protein 5.4 g/dL (6.4-8.2)
[2022-05-24] MEDS: ACCU-CHEK COMFORT CURVE STRIP VI SCH ×3 (06:31→17:00)
[2022-05-24] MEDS: InsuLIN REG 1unit/0.01ml Soln (100units/ml) SC SCH ×3 (06:32→17:00)
[2022-05-24] MEDS: CARISOPRODOL 350 MG TAB PO SCH ×2 (06:38→13:11)
[2022-05-24] MEDS ORDERED: IODIXANOL 320MG/ML 100ML BTL IV ONE ×2 (08:18→08:21)
[2022-05-24] MEDS ORDERED: LIDOCAINE 2%HCL (LOCAL ANESTH.) INJ 10ml MDV ONE (08:21)
[2022-05-24] MEDS ORDERED: HEPARIN SODIUM (PORCINE) 5000 UNITS/ML 1ML VIAL ONE (08:44)
[2022-05-24] MEDS ORDERED: ANGIOMAX 250 MG VIAL IV ONE (08:44)
[2022-05-24] MEDS ORDERED: VERAPAMIL 2.5MG/ML INJ 2ML VIAL IV ONE (08:44)
[2022-05-24] MEDS ORDERED: MIDAZOLAM HCL 2MG/2ML 2ml VIAL (1mg/ml) ONE (08:45)
[2022-05-24] MEDS ORDERED: SODIUM CHL 0.9% 0 ML ONE (08:45)
[2022-05-24] MEDS ORDERED: fentaNYL CITRATE 100 MCG/2 ML VL ONE (08:45)
[2022-05-24] MEDS ORDERED: CLOPIDOGREL BISULFATE 75 MG TAB PO SCH (10:00)
[2022-05-24] MEDS: FUROSEMIDE 20 MG TAB PO SCH (10:40)
[2022-05-24] MEDS: PANTOPRAZOLE 40 MG TAB PO SCH (10:41)
[2022-05-24] MEDS: LISINOPRIL 20 MG TAB PO SCH (10:41)
[2022-05-24] MEDS: CARVEDILOL 3.125 MG TAB PO SCH (10:41)
[2022-05-24] MEDS: ENOXAPARIN SOD 40 MG/0.4 ML SYRINGE SC SCH (10:42)
[2022-05-24] MEDS ORDERED: EMPA1TAB PO (16:01)
[2022-05-24] MEDS ORDERED: CAR3125T PO (16:01)
[2022-05-24] MEDS ORDERED: LISI20TA28 PO (16:01)
[2022-05-24] MEDS ORDERED: CARVEDILOL 3.125 MG TAB PO SCH (22:00)
== END 2022-05-24 18:28 | disposition home or self-care (01) | DRG 192 ==
LOC: EDBD 20:02 → ER 20:02 → TELE 05-23 02:34 → TELE-WESTW 05-24 11:41
PROVIDERS: ADMIT Nurse Practitioner; ATTEND Student in an Organized Health Care Education/Training Program
PROC: 4A023N7 Measurement of Cardiac Sampling and Pressure, Left Heart, Percutaneous Approach (ICD-10-PCS; principal; 2022-05-24)
PROC: B211YZZ Fluoroscopy of Multiple Coronary Arteries using Other Contrast (ICD-10-PCS; 2022-05-24)
PROC: B215YZZ Fluoroscopy of Left Heart using Other Contrast (ICD-10-PCS; 2022-05-24)
DX: I11.0 Hypertensive heart disease with heart failure (principal); Z68.43 Body mass index [BMI] 50.0-59.9, adult; I25.110 Atherosclerotic heart disease of native coronary artery with unstable angina pectoris; I50.20 Unspecified systolic (congestive) heart failure; E11.9 Type 2 diabetes mellitus without complications; E66.01 Morbid (severe) obesity due to excess calories; I89.0 Lymphedema, not elsewhere classified; E78.5 Hyperlipidemia, unspecified; Z20.822 Contact with and (suspected) exposure to COVID-19; G89.29 Other chronic pain; J44.9 Chronic obstructive pulmonary disease, unspecified; Z88.8 Allergy status to other drugs, medicaments and biological substances; Z79.84 Long term (current) use of oral hypoglycemic drugs; Z88.6 Allergy status to analgesic agent
CPT/HCPCS: 36415; 71045; 80053; 81001; 82962; 83880; 84484; 85025; 85610; 85730; 87426; 93005; 93458; 94640; 99152; G0378; J1815; J2001; J2250; Q9967

== ENCOUNTER 2022-06-12 20:14 | Inpatient (IN) | payer MEDICAID ==
[~2022-06-12] VITALS: Ht 167.6 cm; Wt 145.0 kg
[~2022-06-12 20:14] MED LIST changes: +CAR3125T PO; +EMPA1TAB PO; +LISI20TA28 PO; -METF-370 PO
[2022-06-12] MEDS ORDERED: IPRATROPIUM BROM 0.5 MG/2.5ML INH SOL NEB ONE (21:15)
[2022-06-12] MEDS ORDERED: ALBUTEROL SULF 2.5 MG/0.5ML(0.5%) NEB SOLN NEB ONE (21:15)
[2022-06-12] MEDS ORDERED: methylPREDNISolone SOD SUCC 125 MG/2 ML VL IV ONE (21:45)
[2022-06-12 21:48] LABS: Basophils # (auto) 0.1 10 ^3/uL (0-0.2); Basophils % (auto) 0.5 % (0.0-2.0); Eosinophils # (auto) 0.3 10 ^3/uL (0-0.8); Eosinophils % (auto) 2.4 % (0.0-7.0); Hematocrit 41.1 % (41.0-53.0); Hemoglobin 13.8 g/dL (13.5-17.5); Lymphocytes # (auto) 2.8 10 ^3/uL (0.4-5.4); Lymphocytes % (auto) 25.9 % (10.0-50.0); Mean Corpuscular Hemoglobin 31.7 pg (28.0-32.0); Mean Corpuscular Hgb Conc. 33.7 g/dL (32.0-36.0); Monocytes # (auto) 0.8 10 ^3/uL (0-1.3); Monocytes % (auto) 7.1 % (0.0-12.0); Neutrophils # (auto) 6.8 10 ^3/uL (1.6-8.6); Neutrophils % (auto) 64.1 % (37.0-80.0); Nucleated Red Blood Cells % 0.1 %; Red Blood Cells 4.37 10^6/uL (4.5-5.90); White Blood Cell 10.7 10^3/uL (4.4-10.8)
[2022-06-12 22:07] LABS: BUN/Creatinine Ratio 23.8; Calcium 8.8 mg/dL (8.5-10.1); Potassium 4.3 mmol/L (3.5-5.1)
[2022-06-12 22:09] LABS: INR 0.99 (0.9-1.15); Partial Thromboplastin Time 37.5 sec (24.6-33.4)
[2022-06-12 22:10] LABS: Bilirubin, Total 0.6 mg/dL (0.2-1.0)
[2022-06-13] MEDS ORDERED: TEMAZEPAM 15 MG CAP PO PRN (03:45)
[2022-06-13] MEDS ORDERED: MORPHINE SULFATE INJ 2 MG/ml SYRG IV PRN (03:45)
[2022-06-13] MEDS ORDERED: DEXTROSE (50%) 50ML SYRG IV PRN (03:45)
[2022-06-13] MEDS ORDERED: ACETAMINOPHEN 325 MG TAB PO PRN (03:45)
[2022-06-13] MEDS ORDERED: ONDANSETRON HCL 4 MG/2 ML VIAL IV PRN (03:45)
[2022-06-13] MEDS ORDERED: NITROGLYCERIN 0.4 MG SL TAB SL PRN (03:45)
[2022-06-13 04:12] VITALS: BP 124/72
[2022-06-13] MEDS ORDERED: ALBUTEROL SULF 2.5 MG/0.5ML(0.5%) NEB SOLN ONE (05:54)
[2022-06-13] MEDS: ALBUTEROL SULF 2.5 MG/0.5ML(0.5%) NEB SOLN NEB SCH ×3 (05:57→18:16)
[2022-06-13] MEDS: IPRATROPIUM BROM 0.5 MG/2.5ML INH SOL NEB SCH ×3 (05:57→18:16)
[2022-06-13] MEDS: InsuLIN REG 1unit/0.01ml Soln (100units/ml) SC SCH ×4 (07:12→22:15)
[2022-06-13] MEDS: ACCU-CHEK COMFORT CURVE STRIP VI SCH ×4 (07:12→22:15)
[2022-06-13] MEDS: CARVEDILOL 3.125 MG TAB PO SCH ×2 (09:45→22:15)
[2022-06-13] MEDS: predniSONE 20 MG TAB PO SCH (09:45)
[2022-06-13] MEDS: LISINOPRIL 20 MG TAB PO SCH (09:46)
[2022-06-13] MEDS: FUROSEMIDE 40 MG TAB PO SCH (09:46)
[2022-06-13] MEDS: ENOXAPARIN SOD 40 MG/0.4 ML SYRINGE SC SCH (09:47)
[2022-06-13] MEDS: CARISOPRODOL 350 MG TAB PO PRN ×2 (09:55→22:14)
[2022-06-13] MEDS: HYDROcodone-ACET 5/325MG TAB PO PRN (17:53)
[2022-06-13] MEDS ORDERED: ATORVASTATIN 20 MG TAB PO SCH (22:00)
[2022-06-14] MEDS: HYDROcodone-ACET 5/325MG TAB PO PRN ×2 (02:27→10:21)
[2022-06-14] MEDS: IPRATROPIUM BROM 0.5 MG/2.5ML INH SOL NEB SCH ×2 (06:12→12:13)
[2022-06-14] MEDS: ALBUTEROL SULF 2.5 MG/0.5ML(0.5%) NEB SOLN NEB SCH ×2 (06:12→12:13)
[2022-06-14] MEDS: ACCU-CHEK COMFORT CURVE STRIP VI SCH ×2 (06:14→11:30)
[2022-06-14] MEDS: InsuLIN REG 1unit/0.01ml Soln (100units/ml) SC SCH ×2 (06:14→11:30)
[2022-06-14 06:55] LABS: BUN/Creatinine Ratio 28.2; Calcium 8.5 mg/dL (8.5-10.1)
[2022-06-14] MEDS: ENOXAPARIN SOD 40 MG/0.4 ML SYRINGE SC SCH (10:20)
[2022-06-14] MEDS: CARVEDILOL 3.125 MG TAB PO SCH (10:21)
[2022-06-14] MEDS: predniSONE 20 MG TAB PO SCH (10:21)
[2022-06-14] MEDS: CARISOPRODOL 350 MG TAB PO PRN (10:22)
[2022-06-14] MEDS: FUROSEMIDE 40 MG TAB PO SCH (10:22)
[2022-06-14] MEDS: LISINOPRIL 20 MG TAB PO SCH (10:22)
[2022-06-14 12:30] VITALS: BP 121/45
[2022-06-14] MEDS ORDERED: PRED20TA2 PO (15:21)
== END 2022-06-14 15:35 | disposition home or self-care (01) | DRG 140 ==
LOC: ER 20:17 → TELE 06-13 03:45
PROVIDERS: ADMIT Nurse Practitioner; ATTEND Internal Medicine
DX: J44.1 Chronic obstructive pulmonary disease with (acute) exacerbation (principal); J96.21 Acute and chronic respiratory failure with hypoxia; I50.9 Heart failure, unspecified; I11.0 Hypertensive heart disease with heart failure; E11.9 Type 2 diabetes mellitus without complications; Z68.43 Body mass index [BMI] 50.0-59.9, adult; E66.01 Morbid (severe) obesity due to excess calories; Z20.822 Contact with and (suspected) exposure to COVID-19; E78.5 Hyperlipidemia, unspecified; I89.0 Lymphedema, not elsewhere classified; Z88.6 Allergy status to analgesic agent; Z87.891 Personal history of nicotine dependence; Z88.8 Allergy status to other drugs, medicaments and biological substances
CPT/HCPCS: 36415; 71045; 80048; 80053; 82962; 83880; 84484; 85025; 85610; 85730; 87426; 93005; 94640; 96374; G0378; J1815

== ENCOUNTER 2022-07-04 21:14 | Inpatient (IN) | payer MEDICAID ==
[~2022-07-04] VITALS: Ht 167.6 cm; Wt 145.2 kg
[2022-07-04 21:57] LABS: Basophils # (auto) 0.1 10 ^3/uL (0-0.2); Basophils % (auto) 0.5 % (0.0-2.0); Eosinophils # (auto) 0.4 10 ^3/uL (0-0.8); Eosinophils % (auto) 3.7 % (0.0-7.0); Hematocrit 43.7 % (41.0-53.0); Hemoglobin 14.5 g/dL (13.5-17.5); Lymphocytes # (auto) 2.7 10 ^3/uL (0.4-5.4); Lymphocytes % (auto) 25.4 % (10.0-50.0); Mean Corpuscular Hgb Conc. 33.3 g/dL (32.0-36.0); Mean Corpuscular Volume 93.2 fL (80.0-100.0); Monocytes # (auto) 0.8 10 ^3/uL (0-1.3); Monocytes % (auto) 7.4 % (0.0-12.0); Neutrophils # (auto) 6.6 10 ^3/uL (1.6-8.6); Nucleated Red Blood Cells % 0.1 %; Red Blood Cells 4.69 10^6/uL (4.5-5.90); Red Cell Distribution Width 14.2 % (11.8-14.3); White Blood Cell 10.5 10^3/uL (4.4-10.8)
[2022-07-04 22:14] LABS: INR 1.01 (0.9-1.15); Partial Thromboplastin Time 36.4 sec (24.6-33.4)
[2022-07-04 22:30] LABS: Albumin 2.7 g/dL (3.4-5.0); BUN/Creatinine Ratio 14.7 (10.0-20.0); Calcium 8.2 mg/dL (8.5-10.1); Magnesium 2.5 mg/dL (1.6-2.6); Potassium 3.9 mmol/L (3.5-5.1)
[2022-07-04 22:32] LABS: Bilirubin, Total 0.4 mg/dL (0.2-1.0); Total Protein 6.6 g/dL (6.4-8.2)
[2022-07-04] MEDS ORDERED: ALBUTEROL SULF 2.5 MG/0.5ML(0.5%) NEB SOLN NEB ONE (23:00)
[2022-07-04] MEDS ORDERED: methylPREDNISolone SOD SUCC 125 MG/2 ML VL IV ONE (23:00)
[2022-07-04] MEDS ORDERED: IPRATROPIUM BROM 0.5 MG/2.5ML INH SOL NEB ONE (23:00)
[2022-07-05] MEDS ORDERED: TEMAZEPAM 15 MG CAP PO PRN (04:45)
[2022-07-05] MEDS ORDERED: ACETAMINOPHEN 325 MG TAB PO PRN (04:45)
[2022-07-05] MEDS ORDERED: MORPHINE SULFATE INJ 2 MG/ml SYRG IV PRN (04:45)
[2022-07-05] MEDS ORDERED: ONDANSETRON HCL 4 MG/2 ML VIAL IV PRN (04:45)
[2022-07-05] MEDS ORDERED: DEXTROSE (50%) 50ML SYRG IV PRN (04:45)
[2022-07-05] MEDS ORDERED: NITROGLYCERIN 0.4 MG SL TAB SL PRN (04:45)
[2022-07-05] MEDS: ACCU-CHEK COMFORT CURVE STRIP VI SCH ×4 (06:53→22:35)
[2022-07-05] MEDS: InsuLIN REG 1unit/0.01ml Soln (100units/ml) SC SCH ×4 (06:58→22:42)
[2022-07-05] MEDS ORDERED: guaiFENesin-DM 100/10mg/5ml SYR PO ONE (07:45)
[2022-07-05] MEDS: PANTOPRAZOLE 40 MG TAB PO SCH (09:39)
[2022-07-05] MEDS: methylPREDNISolone SOD SUCC 40 MG/ML VL IV SCH ×2 (09:39→22:34)
[2022-07-05] MEDS: ENOXAPARIN SOD 60 MG/0.6 ML SYRINGE SC SCH ×2 (09:40→22:34)
[2022-07-05] MEDS: LISINOPRIL 20 MG TAB PO SCH (09:40)
[2022-07-05] MEDS: FUROSEMIDE 20 MG TAB PO SCH (09:40)
[2022-07-05] MEDS: CARVEDILOL 3.125 MG TAB PO SCH ×2 (09:41→22:00)
[2022-07-05 13:16] VITALS: BP 133/67
[2022-07-05 15:45] VITALS: BP 145/86
[2022-07-05 17:23] VITALS: BP 145/86
[2022-07-05] MEDS: ALBUTEROL SULF 2.5 MG/0.5ML(0.5%) NEB SOLN NEB PRN (20:28)
[2022-07-05] MEDS: IPRATROPIUM BROM 0.5 MG/2.5ML INH SOL NEB PRN (20:29)
[2022-07-05 22:00] VITALS: BP 119/53
[2022-07-05] MEDS: ATORVASTATIN 20 MG TAB PO SCH (22:29)
[2022-07-05] MEDS: HYDROcodone-ACET 5/325MG TAB PO PRN (22:33)
[2022-07-06 05:00] VITALS: BP 107/59
[2022-07-06 05:36] LABS: Basophils # (auto) 0 10 ^3/uL (0-0.2); Eosinophils # (auto) 0 10 ^3/uL (0-0.8); Hematocrit 42.2 % (41.0-53.0); Lymphocytes # (auto) 0.7 10 ^3/uL (0.4-5.4); Lymphocytes % (auto) 5.2 % (10.0-50.0); Mean Corpuscular Hemoglobin 31.1 pg (28.0-32.0); Mean Corpuscular Hgb Conc. 33.1 g/dL (32.0-36.0); Mean Corpuscular Volume 93.9 fL (80.0-100.0); Monocytes # (auto) 0.3 10 ^3/uL (0-1.3); Monocytes % (auto) 2.1 % (0.0-12.0); Neutrophils # (auto) 12.7 10 ^3/uL (1.6-8.6); Neutrophils % (auto) 92.7 % (37.0-80.0); Nucleated Red Blood Cells % 0.1 %; Red Blood Cells 4.49 10^6/uL (4.5-5.90); Red Cell Distribution Width 14.3 % (11.8-14.3); White Blood Cell 13.7 10^3/uL (4.4-10.8)
[2022-07-06 05:58] LABS: BUN/Creatinine Ratio 17.6 (10.0-20.0); Calcium 8.8 mg/dL (8.5-10.1); Potassium 4.3 mmol/L (3.5-5.1)
[2022-07-06] MEDS: InsuLIN REG 1unit/0.01ml Soln (100units/ml) SC SCH ×4 (06:21→21:57)
[2022-07-06] MEDS: ACCU-CHEK COMFORT CURVE STRIP VI SCH ×4 (06:22→21:44)
[2022-07-06 09:00] VITALS: BP 127/62
[2022-07-06] MEDS: LISINOPRIL 20 MG TAB PO SCH (09:40)
[2022-07-06] MEDS: PANTOPRAZOLE 40 MG TAB PO SCH (09:40)
[2022-07-06] MEDS: methylPREDNISolone SOD SUCC 40 MG/ML VL IV SCH ×2 (09:41→21:43)
[2022-07-06] MEDS: FUROSEMIDE 20 MG TAB PO SCH (09:41)
[2022-07-06] MEDS: CARVEDILOL 3.125 MG TAB PO SCH ×2 (09:42→21:43)
[2022-07-06] MEDS: ENOXAPARIN SOD 60 MG/0.6 ML SYRINGE SC SCH ×2 (09:43→21:44)
[2022-07-06 13:00] VITALS: BP 97/61
[2022-07-06 17:04] VITALS: BP 114/69
[2022-07-06] MEDS: ATORVASTATIN 20 MG TAB PO SCH (21:43)
[2022-07-06 22:00] VITALS: BP 124/66
[2022-07-07 05:00] VITALS: BP 143/68
[2022-07-07] MEDS: ACCU-CHEK COMFORT CURVE STRIP VI SCH ×2 (06:19→11:12)
[2022-07-07] MEDS: InsuLIN REG 1unit/0.01ml Soln (100units/ml) SC SCH ×2 (06:23→11:19)
[2022-07-07] MEDS: PANTOPRAZOLE 40 MG TAB PO SCH (08:54)
[2022-07-07] MEDS: LISINOPRIL 20 MG TAB PO SCH (08:54)
[2022-07-07] MEDS: HYDROcodone-ACET 5/325MG TAB PO PRN (08:54)
[2022-07-07] MEDS: CARVEDILOL 3.125 MG TAB PO SCH (08:55)
[2022-07-07] MEDS: FUROSEMIDE 20 MG TAB PO SCH (08:55)
[2022-07-07] MEDS: ENOXAPARIN SOD 60 MG/0.6 ML SYRINGE SC SCH (08:56)
[2022-07-07] MEDS: methylPREDNISolone SOD SUCC 40 MG/ML VL IV SCH (08:56)
[2022-07-07 09:00] VITALS: BP 133/62
[2022-07-07] MEDS: IPRATROPIUM BROM 0.5 MG/2.5ML INH SOL NEB PRN (09:36)
[2022-07-07] MEDS: ALBUTEROL SULF 2.5 MG/0.5ML(0.5%) NEB SOLN NEB PRN (09:36)
[2022-07-07] MEDS ORDERED: METH4PAK PO (11:45)
[2022-07-07] MEDS ORDERED: FUR20T PO (11:45)
[2022-07-07 13:00] VITALS: BP 159/66
[2022-07-07 14:06] VITALS: BP 153/61
== END 2022-07-07 15:40 | disposition home or self-care (01) | DRG 194 ==
LOC: ER 21:14 → TELE 07-05 04:49 → TELE-CENTR 07-05 04:50
PROVIDERS: ADMIT Nurse Practitioner; ATTEND Internal Medicine
DX: I11.0 Hypertensive heart disease with heart failure (principal); J96.20 Acute and chronic respiratory failure, unspecified whether with hypoxia or hypercapnia; I50.33 Acute on chronic diastolic (congestive) heart failure; Z68.43 Body mass index [BMI] 50.0-59.9, adult; E11.9 Type 2 diabetes mellitus without complications; Z20.822 Contact with and (suspected) exposure to COVID-19; E66.01 Morbid (severe) obesity due to excess calories; E78.5 Hyperlipidemia, unspecified; Z88.8 Allergy status to other drugs, medicaments and biological substances; Z88.6 Allergy status to analgesic agent
CPT/HCPCS: 36415; 71045; 80048; 80053; 82962; 83735; 83880; 84484; 85025; 85379; 85610; 85730; 87081; 87426; 94640; 96374; G0378; J1815

== ENCOUNTER 2022-07-20 19:47 | Inpatient (IN) | payer MEDICAID ==
[~2022-07-20] VITALS: Ht 167.6 cm; Wt 148.6 kg
[~2022-07-20 19:47] MED LIST changes: +METH4PAK PO
[2022-07-20 21:44] LABS: Basophils # (auto) 0.1 10 ^3/uL (0-0.2); Basophils % (auto) 0.8 % (0.0-2.0); Eosinophils # (auto) 0.4 10 ^3/uL (0-0.8); Eosinophils % (auto) 3.8 % (0.0-7.0); Hematocrit 41.7 % (41.0-53.0); Hemoglobin 13.5 g/dL (13.5-17.5); Lymphocytes # (auto) 2.4 10 ^3/uL (0.4-5.4); Lymphocytes % (auto) 21.6 % (10.0-50.0); Mean Corpuscular Hemoglobin 30.5 pg (28.0-32.0); Mean Corpuscular Hgb Conc. 32.3 g/dL (32.0-36.0); Mean Corpuscular Volume 94.3 fL (80.0-100.0); Monocytes # (auto) 0.9 10 ^3/uL (0-1.3); Monocytes % (auto) 8.2 % (0.0-12.0); Neutrophils # (auto) 7.2 10 ^3/uL (1.6-8.6); Neutrophils % (auto) 65.6 % (37.0-80.0); Nucleated Red Blood Cells % 0.2 %; Red Blood Cells 4.42 10^6/uL (4.5-5.90); Red Cell Distribution Width 14.2 % (11.8-14.3); White Blood Cell 10.9 10^3/uL (4.4-10.8)
[2022-07-20 22:04] LABS: Calcium 8.3 mg/dL (8.5-10.1); Potassium 4.2 mmol/L (3.5-5.1)
[2022-07-20 22:11] LABS: Albumin 2.6 g/dL (3.4-5.0); BUN/Creatinine Ratio 18.8 (10.0-20.0); Bilirubin, Total 0.4 mg/dL (0.2-1.0); Magnesium 2.6 mg/dL (1.6-2.6); Total Protein 6.1 g/dL (6.4-8.2)
[2022-07-21] MEDS ORDERED: HYDROcodone-ACET 5/325MG TAB PO PRN (02:45)
[2022-07-21] MEDS ORDERED: ACETAMINOPHEN 325 MG TAB PO PRN (02:45)
[2022-07-21] MEDS ORDERED: ONDANSETRON HCL 4 MG/2 ML VIAL IV PRN (02:45)
[2022-07-21] MEDS ORDERED: DOCUSATE SOD 100 MG CAP PO PRN (02:45)
[2022-07-21] MEDS ORDERED: DEXTROSE (50%) 50ML SYRG IV PRN (02:45)
[2022-07-21] MEDS ORDERED: ALBUMIN 25% 100 ML IV ONE (02:45)
[2022-07-21 02:50] VITALS: BP 111/57
[2022-07-21] MEDS ORDERED: NITROGLYCERIN 0.4 MG SL TAB SL PRN (04:30)
[2022-07-21] MEDS ORDERED: MORPHINE SULFATE INJ 2 MG/ml SYRG IV PRN ×2 (04:30)
[2022-07-21] MEDS: SODIUM CHLOR 0.9% PF (SALINE LOCK) 10ML VIAL/SYR IV SCH ×3 (06:10→22:08)
[2022-07-21] MEDS: HYDROcodone-ACET 10/325MG TAB PO PRN ×2 (06:15→22:54)
[2022-07-21] MEDS: InsuLIN REG 1unit/0.01ml Soln (100units/ml) SC SCH ×4 (07:00→22:26)
[2022-07-21] MEDS: ACCU-CHEK COMFORT CURVE STRIP VI SCH ×4 (07:07→22:24)
[2022-07-21] MEDS: IPRATROPIUM BROM 0.5 MG/2.5ML INH SOL NEB PRN (09:34)
[2022-07-21] MEDS: ALBUTEROL SULF 2.5 MG/0.5ML(0.5%) NEB SOLN NEB PRN (09:34)
[2022-07-21 09:40] LABS: Basophils # (auto) 0 10 ^3/uL (0-0.2); Basophils % (auto) 0.3 % (0.0-2.0); Eosinophils # (auto) 0.3 10 ^3/uL (0-0.8); Eosinophils % (auto) 3.3 % (0.0-7.0); Hematocrit 40.4 % (41.0-53.0); Hemoglobin 13.2 g/dL (13.5-17.5); Lymphocytes # (auto) 1.8 10 ^3/uL (0.4-5.4); Lymphocytes % (auto) 22.1 % (10.0-50.0); Mean Corpuscular Hemoglobin 31.2 pg (28.0-32.0); Mean Corpuscular Hgb Conc. 32.6 g/dL (32.0-36.0); Mean Corpuscular Volume 95.7 fL (80.0-100.0); Monocytes # (auto) 0.6 10 ^3/uL (0-1.3); Monocytes % (auto) 7.1 % (0.0-12.0); Neutrophils # (auto) 5.6 10 ^3/uL (1.6-8.6); Neutrophils % (auto) 67.2 % (37.0-80.0); Nucleated Red Blood Cells % 0.1 %; Red Blood Cells 4.22 10^6/uL (4.5-5.90); Red Cell Distribution Width 14.1 % (11.8-14.3); White Blood Cell 8.4 10^3/uL (4.4-10.8)
[2022-07-21 09:53] LABS: Albumin 2.7 g/dL (3.4-5.0); Calcium 8.2 mg/dL (8.5-10.1); Potassium 4.1 mmol/L (3.5-5.1)
[2022-07-21 09:57] LABS: BUN/Creatinine Ratio 20.5 (10.0-20.0)
[2022-07-21 09:58] LABS: Bilirubin, Total 0.3 mg/dL (0.2-1.0); Total Protein 6.1 g/dL (6.4-8.2)
[2022-07-21] MEDS: ASPirin 81 mg TAB PO SCH (10:15)
[2022-07-21] MEDS ORDERED: methylPREDNISolone SOD SUCC 40 MG/ML VL IV ONE (13:30)
[2022-07-21] MEDS: ATORVASTATIN 20 MG TAB PO SCH (22:16)
[2022-07-21] MEDS: methylPREDNISolone SOD SUCC 40 MG/ML VL IV SCH (22:16)
[2022-07-22] MEDS: IPRATROPIUM BROM 0.5 MG/2.5ML INH SOL NEB PRN ×3 (01:57→22:00)
[2022-07-22] MEDS: ALBUTEROL SULF 2.5 MG/0.5ML(0.5%) NEB SOLN NEB PRN ×3 (01:57→22:00)
[2022-07-22 03:41] VITALS: BP 127/55
[2022-07-22 05:00] VITALS: BP 164/62
[2022-07-22] MEDS ORDERED: PNEUMOCOCCAL VACC POLYS 25 MCG/0.5 ML VIAL IM ONE (05:30)
[2022-07-22] MEDS: SODIUM CHLOR 0.9% PF (SALINE LOCK) 10ML VIAL/SYR IV SCH ×3 (06:00→21:54)
[2022-07-22] MEDS: InsuLIN REG 1unit/0.01ml Soln (100units/ml) SC SCH ×4 (07:00→21:45)
[2022-07-22] MEDS: ACCU-CHEK COMFORT CURVE STRIP VI SCH ×4 (07:00→21:45)
[2022-07-22] MEDS: BUDESONIDE (INHALATION) 0.5 MG/2 ML NEB NEB SCH ×2 (07:22→22:00)
[2022-07-22 07:51] LABS: Basophils # (auto) 0 10 ^3/uL (0-0.2); Basophils % (auto) 0.2 % (0.0-2.0); Eosinophils # (auto) 0 10 ^3/uL (0-0.8); Hematocrit 40.3 % (41.0-53.0); Hemoglobin 13.5 g/dL (13.5-17.5); Lymphocytes # (auto) 0.7 10 ^3/uL (0.4-5.4); Lymphocytes % (auto) 5.4 % (10.0-50.0); Mean Corpuscular Hemoglobin 30.7 pg (28.0-32.0); Mean Corpuscular Hgb Conc. 33.4 g/dL (32.0-36.0); Monocytes # (auto) 0.3 10 ^3/uL (0-1.3); Monocytes % (auto) 2.3 % (0.0-12.0); Neutrophils # (auto) 11.2 10 ^3/uL (1.6-8.6); Neutrophils % (auto) 92.1 % (37.0-80.0); Red Blood Cells 4.38 10^6/uL (4.5-5.90); Red Cell Distribution Width 14.2 % (11.8-14.3); White Blood Cell 12.1 10^3/uL (4.4-10.8)
[2022-07-22 08:06] LABS: Calcium 8.9 mg/dL (8.5-10.1); Potassium 4.7 mmol/L (3.5-5.1)
[2022-07-22 08:11] LABS: Albumin 2.6 g/dL (3.4-5.0); BUN/Creatinine Ratio 17.1 (10.0-20.0); Bilirubin, Total 0.3 mg/dL (0.2-1.0); Total Protein 5.6 g/dL (6.4-8.2)
[2022-07-22 09:00] VITALS: BP 125/58
[2022-07-22] MEDS: ASPirin 81 mg TAB PO SCH (10:39)
[2022-07-22] MEDS: methylPREDNISolone SOD SUCC 40 MG/ML VL IV SCH ×2 (10:40→21:33)
[2022-07-22] MEDS: NICOTINE 21MG/24 HR TOPICAL PATCH TD SCH (10:42)
[2022-07-22 12:30] VITALS: BP 118/61
[2022-07-22 17:00] VITALS: BP 115/76
[2022-07-22] MEDS: MUPIROCIN 2% OINT 15gm or 22gm FOR MRSA NARES EACHNOSTRI SCH (21:32)
[2022-07-22] MEDS: ATORVASTATIN 20 MG TAB PO SCH (21:33)
[2022-07-22] MEDS: HYDROcodone-ACET 10/325MG TAB PO PRN (21:34)
[2022-07-22 22:00] VITALS: BP 136/58
[2022-07-23 05:08] VITALS: BP 152/68
[2022-07-23] MEDS: SODIUM CHLOR 0.9% PF (SALINE LOCK) 10ML VIAL/SYR IV SCH ×2 (06:14→13:25)
[2022-07-23] MEDS: ACCU-CHEK COMFORT CURVE STRIP VI SCH ×2 (06:16→10:58)
[2022-07-23] MEDS: InsuLIN REG 1unit/0.01ml Soln (100units/ml) SC SCH ×2 (06:35→11:04)
[2022-07-23] MEDS: IPRATROPIUM BROM 0.5 MG/2.5ML INH SOL NEB PRN (06:36)
[2022-07-23] MEDS: ALBUTEROL SULF 2.5 MG/0.5ML(0.5%) NEB SOLN NEB PRN (06:36)
[2022-07-23] MEDS: BUDESONIDE (INHALATION) 0.5 MG/2 ML NEB NEB SCH (06:37)
[2022-07-23 08:52] VITALS: BP 148/91
[2022-07-23] MEDS: methylPREDNISolone SOD SUCC 40 MG/ML VL IV SCH (08:59)
[2022-07-23] MEDS: NICOTINE 21MG/24 HR TOPICAL PATCH TD SCH (08:59)
[2022-07-23] MEDS: MUPIROCIN 2% OINT 15gm or 22gm FOR MRSA NARES EACHNOSTRI SCH (09:01)
[2022-07-23] MEDS: ASPirin 81 mg TAB PO SCH (09:01)
[2022-07-23] MEDS: HYDROcodone-ACET 10/325MG TAB PO PRN (09:15)
[2022-07-23 13:00] VITALS: BP 145/71
[2022-07-23] MEDS ORDERED: NICOTINE 14 MG/24HR TOPICAL PATCH TD SCH (14:30)
[2022-07-23] MEDS ORDERED: NICO14DI9 TD (14:43)
[2022-07-23 15:49] VITALS: BP 140/64
== END 2022-07-23 16:20 | disposition home or self-care (01) | DRG 140 ==
LOC: ER 19:47 → TELE 07-21 04:30 → TELE-WESTW 07-22 01:00
PROVIDERS: ADMIT Nurse Practitioner Family; ATTEND Internal Medicine
PROC: 3E0234Z Introduction of Serum, Toxoid and Vaccine into Muscle, Percutaneous Approach (ICD-10-PCS; principal; 2022-07-22)
DX: J44.1 Chronic obstructive pulmonary disease with (acute) exacerbation (principal); I11.0 Hypertensive heart disease with heart failure; I50.9 Heart failure, unspecified; I95.9 Hypotension, unspecified; E88.09 Other disorders of plasma-protein metabolism, not elsewhere classified; E11.9 Type 2 diabetes mellitus without complications; Z20.822 Contact with and (suspected) exposure to COVID-19; E66.01 Morbid (severe) obesity due to excess calories; E78.5 Hyperlipidemia, unspecified; F17.200 Nicotine dependence, unspecified, uncomplicated; Z68.43 Body mass index [BMI] 50.0-59.9, adult; Z88.6 Allergy status to analgesic agent; Z79.4 Long term (current) use of insulin; Z23 Encounter for immunization
CPT/HCPCS: 36415; 71045; 80053; 82962; 83036; 83735; 83880; 84484; 85025; 86803; 87081; 93005; 94640; 96365; 96375; G0378; J1815; P9047

== ENCOUNTER 2022-07-27 21:18 | Emergency (ER) | payer MEDICAID ==
[~2022-07-27] VITALS: Ht 167.6 cm; Wt 148.9 kg
[~2022-07-27 21:18] MED LIST changes: +NICO14DI9 TD
[2022-07-28 00:45] LABS: Basophils # (auto) 0.1 10 ^3/uL (0-0.2); Basophils % (auto) 0.8 % (0.0-2.0); Eosinophils # (auto) 0.2 10 ^3/uL (0-0.8); Eosinophils % (auto) 1.5 % (0.0-7.0); Hematocrit 41.4 % (41.0-53.0); Hemoglobin 13.8 g/dL (13.5-17.5); Lymphocytes # (auto) 2.8 10 ^3/uL (0.4-5.4); Lymphocytes % (auto) 24.6 % (10.0-50.0); Mean Corpuscular Hemoglobin 31.1 pg (28.0-32.0); Mean Corpuscular Hgb Conc. 33.4 g/dL (32.0-36.0); Mean Corpuscular Volume 93.3 fL (80.0-100.0); Monocytes # (auto) 0.6 10 ^3/uL (0-1.3); Monocytes % (auto) 5.7 % (0.0-12.0); Neutrophils # (auto) 7.7 10 ^3/uL (1.6-8.6); Neutrophils % (auto) 67.4 % (37.0-80.0); Nucleated Red Blood Cells % 0.1 %; Red Blood Cells 4.43 10^6/uL (4.5-5.90); White Blood Cell 11.4 10^3/uL (4.4-10.8)
[2022-07-28 00:59] LABS: Albumin 2.7 g/dL (3.4-5.0); BUN/Creatinine Ratio 21.4 (10.0-20.0); Calcium 8.6 mg/dL (8.5-10.1); Potassium 3.8 mmol/L (3.5-5.1)
[2022-07-28 01:02] LABS: Total Protein 6.3 g/dL (6.4-8.2)
[2022-07-28] MEDS ORDERED: HYDROcodone-ACET 10/325MG TAB PO ONE (03:00)
[2022-07-28 04:39] VITALS: BP 118/42
== END 2022-07-28 03:12 | disposition home or self-care (01) ==
LOC: ER 21:18
DX: R60.0 Localized edema (principal); J44.9 Chronic obstructive pulmonary disease, unspecified; E11.9 Type 2 diabetes mellitus without complications; I11.0 Hypertensive heart disease with heart failure; I50.9 Heart failure, unspecified; E78.5 Hyperlipidemia, unspecified; Z88.6 Allergy status to analgesic agent
CPT/HCPCS: 36415; 71045; 80053; 83880; 84484; 85025

== ENCOUNTER 2022-08-03 10:13 | Inpatient (IN) | payer MEDICAID ==
[~2022-08-03] VITALS: Ht 167.6 cm; Wt 147.2 kg
[2022-08-03 10:33] LABS: Basophils # (auto) 0 10 ^3/uL (0-0.2); Basophils % (auto) 0.3 % (0.0-2.0); Eosinophils # (auto) 0.2 10 ^3/uL (0-0.8); Eosinophils % (auto) 1.6 % (0.0-7.0); Hematocrit 40.6 % (41.0-53.0); Hemoglobin 13.5 g/dL (13.5-17.5); Lymphocytes # (auto) 1.9 10 ^3/uL (0.4-5.4); Mean Corpuscular Hemoglobin 31.3 pg (28.0-32.0); Mean Corpuscular Hgb Conc. 33.3 g/dL (32.0-36.0); Mean Corpuscular Volume 93.8 fL (80.0-100.0); Monocytes # (auto) 0.5 10 ^3/uL (0-1.3); Monocytes % (auto) 5.2 % (0.0-12.0); Neutrophils # (auto) 7.6 10 ^3/uL (1.6-8.6); Neutrophils % (auto) 73.9 % (37.0-80.0); Nucleated Red Blood Cells % 0.1 %; Red Blood Cells 4.33 10^6/uL (4.5-5.90); Red Cell Distribution Width 14.1 % (11.8-14.3); White Blood Cell 10.2 10^3/uL (4.4-10.8)
[2022-08-03 10:54] LABS: Albumin 2.9 g/dL (3.4-5.0); Calcium 8.3 mg/dL (8.5-10.1); Potassium 4.4 mmol/L (3.5-5.1)
[2022-08-03 10:57] LABS: BUN/Creatinine Ratio 18.2 (10.0-20.0); Bilirubin, Total 0.3 mg/dL (0.2-1.0); INR 0.92 (0.9-1.15)
[2022-08-03] MEDS ORDERED: ASPirin 325 MG TAB PO ONE (12:30)
[2022-08-03] MEDS ORDERED: NITROGLYCERIN 0.4 MG SL TAB SL ONE (12:30)
[2022-08-03] MEDS ORDERED: ACETAMINOPHEN 325 MG TAB PO PRN (13:30)
[2022-08-03] MEDS ORDERED: DEXTROSE (50%) 50ML SYRG IV PRN ×2 (13:30→13:45)
[2022-08-03] MEDS ORDERED: NITROGLYCERIN 0.4 MG SL TAB SL PRN (13:30)
[2022-08-03] MEDS ORDERED: MORPHINE SULFATE INJ 2 MG/ml SYRG IV PRN (13:30)
[2022-08-03] MEDS ORDERED: ALBUTEROL SULF 2.5 MG/0.5ML(0.5%) NEB SOLN NEB PRN (13:45)
[2022-08-03] MEDS ORDERED: ENOXAPARIN SOD 150 MG/1 ML SYRINGE SC ONE (14:15)
[2022-08-03] MEDS ORDERED: ACCU-CHEK COMFORT CURVE STRIP VI SCH (17:00)
[2022-08-03] MEDS ORDERED: InsuLIN REG 1unit/0.01ml Soln (100units/ml) SC SCH (17:00)
[2022-08-03] MEDS: ALBUTEROL SULF 2.5 MG/0.5ML(0.5%) NEB SOLN NEB SCH (19:19)
[2022-08-03] MEDS: IPRATROPIUM BROM 0.5 MG/2.5ML INH SOL NEB SCH (19:19)
[2022-08-03] MEDS: HYDROcodone-ACET 5/325MG TAB PO PRN (20:27)
[2022-08-03] MEDS: ACCU-CHEK COMFORT CURVE STRIP VI SCH ×2 (20:31→22:25)
[2022-08-03] MEDS: InsuLIN REG 1unit/0.01ml Soln (100units/ml) SC SCH ×2 (20:31→22:00)
[2022-08-03 22:20] VITALS: BP 137/52
[2022-08-03] MEDS: ENOXAPARIN SOD 150 MG/1 ML SYRINGE SC SCH (22:26)
[2022-08-03 22:39] LABS: Urine Bacteria NONE SEEN /hpf (None Seen); Urine Blood Negative /uL (Negative); Urine Specific Gravity 1.017 (1.001-1.035); Urine WBC <1 /hpf (0 - 3)
[2022-08-04] MEDS: IPRATROPIUM BROM 0.5 MG/2.5ML INH SOL NEB SCH ×4 (01:22→19:17)
[2022-08-04] MEDS: ALBUTEROL SULF 2.5 MG/0.5ML(0.5%) NEB SOLN NEB SCH ×4 (01:22→19:17)
[2022-08-04 01:47] VITALS: BP 137/52
[2022-08-04 05:00] VITALS: BP 125/46
[2022-08-04 06:17] LABS: Basophils # (auto) 0 10 ^3/uL (0-0.2); Basophils % (auto) 0.2 % (0.0-2.0); Eosinophils # (auto) 0.2 10 ^3/uL (0-0.8); Eosinophils % (auto) 2.2 % (0.0-7.0); Hematocrit 39.8 % (41.0-53.0); Hemoglobin 13.2 g/dL (13.5-17.5); Lymphocytes # (auto) 2.1 10 ^3/uL (0.4-5.4); Lymphocytes % (auto) 28.3 % (10.0-50.0); Mean Corpuscular Hemoglobin 31.2 pg (28.0-32.0); Mean Corpuscular Hgb Conc. 33.2 g/dL (32.0-36.0); Mean Corpuscular Volume 93.8 fL (80.0-100.0); Monocytes # (auto) 0.5 10 ^3/uL (0-1.3); Neutrophils # (auto) 4.8 10 ^3/uL (1.6-8.6); Neutrophils % (auto) 63.3 % (37.0-80.0); Nucleated Red Blood Cells % 0.1 %; Red Blood Cells 4.24 10^6/uL (4.5-5.90); Red Cell Distribution Width 13.6 % (11.8-14.3); White Blood Cell 7.5 10^3/uL (4.4-10.8)
[2022-08-04] MEDS: ACCU-CHEK COMFORT CURVE STRIP VI SCH ×4 (06:25→21:52)
[2022-08-04] MEDS: InsuLIN REG 1unit/0.01ml Soln (100units/ml) SC SCH ×4 (06:25→21:52)
[2022-08-04 06:37] LABS: Albumin 2.4 g/dL (3.4-5.0); Calcium 8.1 mg/dL (8.5-10.1); Potassium 3.9 mmol/L (3.5-5.1)
[2022-08-04 06:44] LABS: BUN/Creatinine Ratio 20.3 (10.0-20.0); Bilirubin, Total 0.6 mg/dL (0.2-1.0); Total Protein 5.8 g/dL (6.4-8.2)
[2022-08-04 09:00] VITALS: BP 127/53
[2022-08-04] MEDS ORDERED: ASPirin 81 mg TAB PO SCH (10:00)
[2022-08-04] MEDS: ENOXAPARIN SOD 150 MG/1 ML SYRINGE SC SCH (10:35)
[2022-08-04] MEDS: HYDROcodone-ACET 5/325MG TAB PO PRN ×2 (10:39→18:58)
[2022-08-04 13:00] VITALS: BP 142/67
[2022-08-04 16:37] VITALS: BP 112/73
[2022-08-04] MEDS ORDERED: LACTULOSE 20Gm/30ML SOLN PO PRN (18:30)
[2022-08-04] MEDS ORDERED: FUROSEMIDE 40 MG/4 ML VIAL IV ONE (18:30)
[2022-08-04] MEDS: CARISOPRODOL 350 MG TAB PO PRN (21:51)
[2022-08-04] MEDS: MUPIROCIN 2% OINT 15gm or 22gm FOR MRSA NARES EACHNOSTRI SCH (21:51)
[2022-08-04 22:00] VITALS: BP 131/62
[2022-08-04] MEDS ORDERED: ATORVASTATIN 20 MG TAB PO SCH (22:00)
[2022-08-05 05:00] VITALS: BP 155/70
[2022-08-05] MEDS: ACCU-CHEK COMFORT CURVE STRIP VI SCH ×3 (06:07→17:06)
[2022-08-05] MEDS: FUROSEMIDE 40 MG/4 ML VIAL IV SCH ×2 (06:18→18:00)
[2022-08-05] MEDS: CARISOPRODOL 350 MG TAB PO PRN ×2 (06:18→16:25)
[2022-08-05] MEDS: InsuLIN REG 1unit/0.01ml Soln (100units/ml) SC SCH ×3 (06:19→18:13)
[2022-08-05] MEDS: IPRATROPIUM BROM 0.5 MG/2.5ML INH SOL NEB SCH ×4 (06:50→18:55)
[2022-08-05] MEDS: ALBUTEROL SULF 2.5 MG/0.5ML(0.5%) NEB SOLN NEB SCH ×4 (06:50→18:55)
[2022-08-05 07:14] LABS: BUN/Creatinine Ratio 17.1 (10.0-20.0); Magnesium 2.5 mg/dL (1.6-2.6); Potassium 3.9 mmol/L (3.5-5.1)
[2022-08-05 09:00] VITALS: BP 103/52
[2022-08-05] MEDS ORDERED: NICOTINE 14 MG/24HR TOPICAL PATCH TD SCH (10:00)
[2022-08-05] MEDS ORDERED: ASPirin 81 mg TAB PO SCH (10:00)
[2022-08-05] MEDS ORDERED: PANTOPRAZOLE 40 MG TAB PO SCH (10:00)
[2022-08-05] MEDS ORDERED: predniSONE 20 MG TAB PO SCH (10:00)
[2022-08-05] MEDS ORDERED: LISINOPRIL 20 MG TAB PO SCH (10:00)
[2022-08-05] MEDS: MUPIROCIN 2% OINT 15gm or 22gm FOR MRSA NARES EACHNOSTRI SCH (11:13)
[2022-08-05 13:00] VITALS: BP 101/54
[2022-08-05] MEDS: HYDROcodone-ACET 5/325MG TAB PO PRN (16:25)
[2022-08-05 16:52] VITALS: BP 114/58
== END 2022-08-05 18:40 | disposition left against medical advice (07) | DRG 194 ==
LOC: ER 10:13 → TELE 13:30 → TELE-WESTW 22:16
PROVIDERS: ADMIT Nurse Practitioner Family; ATTEND Internal Medicine
DX: I11.0 Hypertensive heart disease with heart failure (principal); I24.9 Acute ischemic heart disease, unspecified; Z68.43 Body mass index [BMI] 50.0-59.9, adult; I50.43 Acute on chronic combined systolic (congestive) and diastolic (congestive) heart failure; E11.9 Type 2 diabetes mellitus without complications; E66.01 Morbid (severe) obesity due to excess calories; E78.5 Hyperlipidemia, unspecified; G89.4 Chronic pain syndrome; Z53.29 Procedure and treatment not carried out because of patient's decision for other reasons; I16.0 Hypertensive urgency; J44.9 Chronic obstructive pulmonary disease, unspecified; Z88.6 Allergy status to analgesic agent; Z79.82 Long term (current) use of aspirin; Z87.891 Personal history of nicotine dependence; Z91.199 Patient's noncompliance with other medical treatment and regimen due to unspecified reason; Z88.8 Allergy status to other drugs, medicaments and biological substances
CPT/HCPCS: 36415; 71045; 80048; 80053; 81001; 82962; 83735; 83880; 84484; 85025; 85610; 85730; 87081; 93005; 93970; 94640; G0378; J1815

== ENCOUNTER 2022-08-24 15:21 | Inpatient (IN) | payer MEDICAID ==
[~2022-08-24] VITALS: Ht 167.6 cm; Wt 145.5 kg
[2022-08-24 16:25] LABS: INR 0.96 (0.9-1.15); Partial Thromboplastin Time 33.1 sec (24.6-33.4)
[2022-08-24 16:31] LABS: Albumin 2.8 g/dL (3.4-5.0); Calcium 8.4 mg/dL (8.5-10.1); Potassium 4.2 mmol/L (3.5-5.1)
[2022-08-24 16:37] LABS: BUN/Creatinine Ratio 19.5 (10.0-20.0); Bilirubin, Total 0.6 mg/dL (0.2-1.0); Total Protein 6.4 g/dL (6.4-8.2)
[2022-08-24 16:58] LABS: Basophils # (auto) 0 10 ^3/uL (0-0.2); Basophils % (auto) 0.4 % (0.0-2.0); Eosinophils # (auto) 0.2 10 ^3/uL (0-0.8); Eosinophils % (auto) 2.2 % (0.0-7.0); Hematocrit 40.8 % (41.0-53.0); Hemoglobin 13.5 g/dL (13.5-17.5); Lymphocytes % (auto) 19.5 % (10.0-50.0); Mean Corpuscular Hgb Conc. 32.9 g/dL (32.0-36.0); Monocytes # (auto) 0.6 10 ^3/uL (0-1.3); Monocytes % (auto) 6.1 % (0.0-12.0); Neutrophils # (auto) 7.2 10 ^3/uL (1.6-8.6); Neutrophils % (auto) 71.8 % (37.0-80.0); Nucleated Red Blood Cells % 0.1 %; Red Blood Cells 4.34 10^6/uL (4.5-5.90); Red Cell Distribution Width 14.1 % (11.8-14.3); White Blood Cell 10.1 10^3/uL (4.4-10.8)
[2022-08-24] MEDS ORDERED: ACETAMINOPHEN 500 MG TAB PO ONE (19:30)
[2022-08-24] MEDS ORDERED: ALBUTEROL SULF 2.5 MG/0.5ML(0.5%) NEB SOLN NEB ONE (19:30)
[2022-08-24] MEDS ORDERED: IPRATROPIUM BROM 0.5 MG/2.5ML INH SOL NEB ONE (19:30)
[2022-08-24] MEDS ORDERED: IPRATROPIUM BROM 0.5 MG/2.5ML INH SOL NEB PRN (23:45)
[2022-08-24] MEDS ORDERED: ONDANSETRON HCL 4 MG/2 ML VIAL IV PRN (23:45)
[2022-08-24] MEDS ORDERED: ALBUTEROL SULF 2.5 MG/0.5ML(0.5%) NEB SOLN NEB PRN (23:45)
[2022-08-24] MEDS ORDERED: ACETAMINOPHEN 325 MG TAB PO PRN (23:45)
[2022-08-24] MEDS ORDERED: NITROGLYCERIN 0.4 MG SL TAB SL PRN (23:45)
[2022-08-24] MEDS ORDERED: DEXTROSE (50%) 50ML SYRG IV PRN (23:45)
[2022-08-24] MEDS ORDERED: DOCUSATE SOD 100 MG CAP PO PRN (23:45)
[2022-08-24] MEDS ORDERED: MORPHINE SULFATE INJ 2 MG/ml SYRG IV PRN ×2 (23:45)
[2022-08-25 05:21] VITALS: BP 120/41
[2022-08-25 05:39] LABS: Basophils # (auto) 0 10 ^3/uL (0-0.2); Basophils % (auto) 0.1 % (0.0-2.0); Eosinophils # (auto) 0.2 10 ^3/uL (0-0.8); Eosinophils % (auto) 3.2 % (0.0-7.0); Hematocrit 39.3 % (41.0-53.0); Hemoglobin 12.9 g/dL (13.5-17.5); Lymphocytes # (auto) 1.9 10 ^3/uL (0.4-5.4); Lymphocytes % (auto) 26.7 % (10.0-50.0); Mean Corpuscular Hemoglobin 31.1 pg (28.0-32.0); Mean Corpuscular Hgb Conc. 32.8 g/dL (32.0-36.0); Mean Corpuscular Volume 94.6 fL (80.0-100.0); Monocytes # (auto) 0.6 10 ^3/uL (0-1.3); Monocytes % (auto) 8.6 % (0.0-12.0); Neutrophils # (auto) 4.5 10 ^3/uL (1.6-8.6); Neutrophils % (auto) 61.4 % (37.0-80.0); Nucleated Red Blood Cells % 0.2 %; Red Blood Cells 4.15 10^6/uL (4.5-5.90); Red Cell Distribution Width 13.7 % (11.8-14.3); White Blood Cell 7.3 10^3/uL (4.4-10.8)
[2022-08-25 05:45] LABS: Albumin 2.8 g/dL (3.4-5.0); Calcium 7.9 mg/dL (8.5-10.1)
[2022-08-25 05:49] LABS: BUN/Creatinine Ratio 27.4 (10.0-20.0); Bilirubin, Total 0.5 mg/dL (0.2-1.0); Total Protein 6.5 g/dL (6.4-8.2)
[2022-08-25] MEDS: SODIUM CHLOR 0.9% PF (SALINE LOCK) 10ML VIAL/SYR IV SCH ×3 (06:14→21:22)
[2022-08-25] MEDS: ACCU-CHEK COMFORT CURVE STRIP VI SCH ×4 (06:15→22:16)
[2022-08-25] MEDS: InsuLIN REG 1unit/0.01ml Soln (100units/ml) SC SCH ×4 (06:16→22:00)
[2022-08-25] MEDS ORDERED: FAMOTIDINE (10MG/ML) 2ML VL IV SCH (10:00)
[2022-08-25] MEDS: ASPirin 81 mg TAB PO SCH (10:42)
[2022-08-25] MEDS: ALBUTEROL SULF 2.5 MG/0.5ML(0.5%) NEB SOLN NEB SCH ×2 (16:59→19:23)
[2022-08-25] MEDS: IPRATROPIUM BROM 0.5 MG/2.5ML INH SOL NEB SCH (16:59)
[2022-08-25] MEDS: metFORMIN HYDROCHLORIDE 500 MG TAB PO SCH (18:14)
[2022-08-25] MEDS: BUDESONIDE (INHALATION) 0.5 MG/2 ML NEB NEB SCH (19:24)
[2022-08-25] MEDS: HYDROcodone-ACET 5/325MG TAB PO PRN (21:23)
[2022-08-25] MEDS: CARVEDILOL 3.125 MG TAB PO SCH (21:23)
[2022-08-25] MEDS: ATORVASTATIN 20 MG TAB PO SCH (21:24)
[2022-08-25] MEDS: CARISOPRODOL 350 MG TAB PO PRN (21:24)
[2022-08-26 05:13] VITALS: BP 134/49
[2022-08-26] MEDS: IPRATROPIUM BROM 0.5 MG/2.5ML INH SOL NEB SCH ×3 (06:06→19:48)
[2022-08-26] MEDS: ALBUTEROL SULF 2.5 MG/0.5ML(0.5%) NEB SOLN NEB SCH ×3 (06:06→19:48)
[2022-08-26] MEDS: BUDESONIDE (INHALATION) 0.5 MG/2 ML NEB NEB SCH ×2 (06:11→19:48)
[2022-08-26] MEDS: ACCU-CHEK COMFORT CURVE STRIP VI SCH ×4 (06:57→21:30)
[2022-08-26] MEDS: SODIUM CHLOR 0.9% PF (SALINE LOCK) 10ML VIAL/SYR IV SCH ×3 (06:58→21:25)
[2022-08-26] MEDS: InsuLIN REG 1unit/0.01ml Soln (100units/ml) SC SCH ×4 (06:58→22:00)
[2022-08-26] MEDS: CARISOPRODOL 350 MG TAB PO PRN ×2 (07:17→18:56)
[2022-08-26] MEDS: HYDROcodone-ACET 5/325MG TAB PO PRN ×2 (07:18→18:56)
[2022-08-26] MEDS: metFORMIN HYDROCHLORIDE 500 MG TAB PO SCH ×2 (09:01→18:49)
[2022-08-26] MEDS: ASPirin 81 mg TAB PO SCH (10:43)
[2022-08-26] MEDS: LISINOPRIL 20 MG TAB PO SCH (10:44)
[2022-08-26] MEDS: predniSONE 20 MG TAB PO SCH (10:45)
[2022-08-26] MEDS: CARVEDILOL 3.125 MG TAB PO SCH ×3 (10:46→21:25)
[2022-08-26] MEDS: FUROSEMIDE 20 MG TAB PO SCH (10:46)
[2022-08-26] MEDS: PANTOPRAZOLE 40 MG TAB PO SCH (10:46)
[2022-08-26] MEDS: EMPAGLIFLOZIN 10 MG TAB PO SCH (10:47)
[2022-08-26 13:00] VITALS: BP 141/68
[2022-08-26] MEDS: ATORVASTATIN 20 MG TAB PO SCH (21:24)
[2022-08-26] MEDS: GABAPENTIN 100 MG CAP PO SCH (21:25)
[2022-08-26 22:00] VITALS: BP 121/58
[2022-08-27] MEDS: ALBUTEROL SULF 2.5 MG/0.5ML(0.5%) NEB SOLN NEB SCH ×3 (00:21→13:42)
[2022-08-27] MEDS: SODIUM CHLOR 0.9% PF (SALINE LOCK) 10ML VIAL/SYR IV SCH ×2 (06:17→16:49)
[2022-08-27] MEDS: InsuLIN REG 1unit/0.01ml Soln (100units/ml) SC SCH ×3 (06:18→17:21)
[2022-08-27] MEDS: ACCU-CHEK COMFORT CURVE STRIP VI SCH ×3 (06:18→17:18)
[2022-08-27] MEDS: BUDESONIDE (INHALATION) 0.5 MG/2 ML NEB NEB SCH (06:31)
[2022-08-27] MEDS: IPRATROPIUM BROM 0.5 MG/2.5ML INH SOL NEB SCH ×2 (06:31→13:42)
[2022-08-27] MEDS: CARISOPRODOL 350 MG TAB PO PRN (07:05)
[2022-08-27] MEDS: HYDROcodone-ACET 5/325MG TAB PO PRN (07:05)
[2022-08-27] MEDS: metFORMIN HYDROCHLORIDE 500 MG TAB PO SCH (08:18)
[2022-08-27 09:00] VITALS: BP 107/41
[2022-08-27] MEDS: GABAPENTIN 100 MG CAP PO SCH (11:00)
[2022-08-27] MEDS: LISINOPRIL 20 MG TAB PO SCH (11:00)
[2022-08-27] MEDS: PANTOPRAZOLE 40 MG TAB PO SCH (11:00)
[2022-08-27] MEDS: FUROSEMIDE 20 MG TAB PO SCH (11:01)
[2022-08-27] MEDS: EMPAGLIFLOZIN 10 MG TAB PO SCH (11:01)
[2022-08-27] MEDS: ASPirin 81 mg TAB PO SCH (11:02)
[2022-08-27] MEDS: predniSONE 20 MG TAB PO SCH (11:02)
[2022-08-27] MEDS: CARVEDILOL 3.125 MG TAB PO SCH (11:02)
[2022-08-27 13:00] VITALS: BP 118/58
[2022-08-27 17:00] VITALS: BP 122/62
[2022-08-27 17:40] VITALS: BP 122/62
== END 2022-08-27 19:01 | disposition home or self-care (01) | DRG 194 ==
LOC: ER 15:21 → TELE 23:52 → TELE-CENTR 08-25 20:30
PROVIDERS: ADMIT Nurse Practitioner Family; ATTEND Nurse Practitioner Acute Care
DX: I11.0 Hypertensive heart disease with heart failure (principal); E88.09 Other disorders of plasma-protein metabolism, not elsewhere classified; J44.1 Chronic obstructive pulmonary disease with (acute) exacerbation; Z68.43 Body mass index [BMI] 50.0-59.9, adult; E11.9 Type 2 diabetes mellitus without complications; B95.62 Methicillin resistant Staphylococcus aureus infection as the cause of diseases classified elsewhere; I50.33 Acute on chronic diastolic (congestive) heart failure; E66.01 Morbid (severe) obesity due to excess calories; E78.00 Pure hypercholesterolemia, unspecified; G89.4 Chronic pain syndrome; Z87.891 Personal history of nicotine dependence; Z88.6 Allergy status to analgesic agent; Z79.899 Other long term (current) drug therapy
CPT/HCPCS: 36415; 71045; 80053; 82550; 82962; 83036; 83880; 84484; 85025; 85610; 85730; 87081; 93005; 94640; 96374; G0378; J1815; J3490

== ENCOUNTER 2022-09-05 21:23 | Emergency (ER) | payer MEDICAID ==
[~2022-09-05] VITALS: Ht 167.6 cm; Wt 143.0 kg
[~2022-09-05 21:23] MED LIST changes: -CARI350T23 PO; +CARI350T28 PO; -LISI20TA28 PO; +LISI20TA56 PO
[2022-09-05 22:04] LABS: Basophils # (auto) 0.1 10 ^3/uL (0-0.2); Basophils % (auto) 0.6 % (0.0-2.0); Eosinophils # (auto) 0.3 10 ^3/uL (0-0.8); Eosinophils % (auto) 2.7 % (0.0-7.0); Hematocrit 40.3 % (41.0-53.0); Hemoglobin 13.6 g/dL (13.5-17.5); Lymphocytes % (auto) 20.4 % (10.0-50.0); Mean Corpuscular Hemoglobin 31.9 pg (28.0-32.0); Mean Corpuscular Hgb Conc. 33.8 g/dL (32.0-36.0); Mean Corpuscular Volume 94.3 fL (80.0-100.0); Monocytes # (auto) 0.6 10 ^3/uL (0-1.3); Monocytes % (auto) 6.4 % (0.0-12.0); Neutrophils # (auto) 6.8 10 ^3/uL (1.6-8.6); Neutrophils % (auto) 69.9 % (37.0-80.0); Nucleated Red Blood Cells % 0.1 %; Red Blood Cells 4.28 10^6/uL (4.5-5.90); Red Cell Distribution Width 13.8 % (11.8-14.3); White Blood Cell 9.8 10^3/uL (4.4-10.8)
[2022-09-05 22:21] LABS: Albumin 2.9 g/dL (3.4-5.0); Calcium 8.3 mg/dL (8.5-10.1); Magnesium 2.4 mg/dL (1.6-2.6); Potassium 4.1 mmol/L (3.5-5.1)
[2022-09-05 22:24] LABS: BUN/Creatinine Ratio 20.9 (10.0-20.0); Bilirubin, Total 0.3 mg/dL (0.2-1.0); Total Protein 6.4 g/dL (6.4-8.2)
[2022-09-05 22:50] LABS: INR 0.96 (0.9-1.15); Partial Thromboplastin Time 29.1 sec (24.6-33.4)
[2022-09-05] MEDS ORDERED: MORPHINE SULFATE 4 MG/ML SYR/VIAL IM ONE (23:00)
[2022-09-06 02:10] VITALS: BP 125/85
== END 2022-09-06 02:44 | disposition home or self-care (01) ==
LOC: ER 21:25
DX: M25.551 Pain in right hip (principal); R07.89 Other chest pain; I11.0 Hypertensive heart disease with heart failure; I50.9 Heart failure, unspecified; J44.9 Chronic obstructive pulmonary disease, unspecified; E11.9 Type 2 diabetes mellitus without complications
CPT/HCPCS: 36415; 71045; 80053; 83735; 83880; 84484; 85025; 85610; 85730; 93005; 96372; 99285; J2270

== ENCOUNTER 2022-09-19 19:51 | Emergency (ER) | payer MEDICAID ==
[~2022-09-19] VITALS: Ht 167.6 cm; Wt 151.9 kg
[2022-09-19 20:27] LABS: Basophils # (auto) 0.1 10 ^3/uL (0-0.2); Basophils % (auto) 0.8 % (0.0-2.0); Eosinophils # (auto) 0 10 ^3/uL (0-0.8); Hemoglobin 13.3 g/dL (13.5-17.5); Lymphocytes # (auto) 0.7 10 ^3/uL (0.4-5.4); Lymphocytes % (auto) 6.7 % (10.0-50.0); Mean Corpuscular Hemoglobin 30.8 pg (28.0-32.0); Mean Corpuscular Hgb Conc. 33.2 g/dL (32.0-36.0); Monocytes # (auto) 0.5 10 ^3/uL (0-1.3); Monocytes % (auto) 4.4 % (0.0-12.0); Neutrophils # (auto) 9.7 10 ^3/uL (1.6-8.6); Neutrophils % (auto) 88.1 % (37.0-80.0); Red Cell Distribution Width 13.7 % (11.8-14.3)
[2022-09-19 20:45] LABS: Albumin 3.1 g/dL (3.4-5.0); Calcium 8.3 mg/dL (8.5-10.1); Potassium 4.9 mmol/L (3.5-5.1)
[2022-09-19 20:50] LABS: BUN/Creatinine Ratio 19.3 (10.0-20.0); Bilirubin, Total 0.2 mg/dL (0.2-1.0); Total Protein 6.5 g/dL (6.4-8.2)
[2022-09-20] MEDS ORDERED: HYDROcodone-ACET 10/325MG TAB PO ONE
[2022-09-20] MEDS ORDERED: ALBUTEROL SULF 2.5 MG/0.5ML(0.5%) NEB SOLN NEB ONE (00:15)
[2022-09-20] MEDS ORDERED: cefTRIAXone SOD 1,000 MG VL IM ONE (00:15)
[2022-09-20] MEDS ORDERED: methylPREDNISolone SOD SUCC 125 MG/2 ML VL IM ONE (00:15)
[2022-09-20] MEDS ORDERED: AZITHROMYCIN 250 MG TAB PO ONE (00:15)
[2022-09-20] MEDS ORDERED: IPRATROPIUM BROM 0.5 MG/2.5ML INH SOL NEB ONE (00:15)
[2022-09-20 02:00] VITALS: BP 151/73
[2022-09-20] MEDS ORDERED: AZITTAB PO (02:10)
[2022-09-20] MEDS ORDERED: ALBU108A5 IN (02:10)
== END 2022-09-20 03:25 | disposition home or self-care (01) ==
LOC: EDBD 19:53 → ER 19:53
DX: J18.9 Pneumonia, unspecified organism (principal); I11.0 Hypertensive heart disease with heart failure; I50.9 Heart failure, unspecified; J44.9 Chronic obstructive pulmonary disease, unspecified; E11.9 Type 2 diabetes mellitus without complications; E78.5 Hyperlipidemia, unspecified; Z88.6 Allergy status to analgesic agent
CPT/HCPCS: 36415; 71045; 80053; 82962; 83880; 84484; 85025; 93005; 94640; 96372; 99285; J0696; J2930; J7644

== ENCOUNTER 2022-09-23 01:30 | Emergency (ER) | payer MEDICAID ==
[~2022-09-23] VITALS: Ht 167.6 cm; Wt 153.2 kg
[~2022-09-23 01:30] MED LIST changes: +ALBU108A5 IN; +AZITTAB PO
[2022-09-23 02:10] VITALS: BP 142/47
[2022-09-23] MEDS ORDERED: HYDROcodone-ACET 10/325MG TAB PO ONE (03:30)
== END 2022-09-23 03:40 | disposition home or self-care (01) ==
LOC: ER 01:30
DX: G89.29 Other chronic pain (principal); M54.50 Low back pain, unspecified; I11.0 Hypertensive heart disease with heart failure; I50.9 Heart failure, unspecified; J44.9 Chronic obstructive pulmonary disease, unspecified; E11.9 Type 2 diabetes mellitus without complications; E78.5 Hyperlipidemia, unspecified; Z88.6 Allergy status to analgesic agent; X50.1XXA Overexertion from prolonged static or awkward postures, initial encounter; Y93.89 Activity, other specified; Y92.89 Other specified places as the place of occurrence of the external cause; Y99.8 Other external cause status

== ENCOUNTER 2022-10-03 00:30 | Inpatient (IN) | payer MEDICAID ==
[~2022-10-03] VITALS: Ht 167.6 cm; Wt 144.6 kg
[2022-10-03 01:00] LABS: Hemoglobin 13.7 g/dL (13.5-17.5); Mean Corpuscular Hemoglobin 30.8 pg (28.0-32.0); Mean Corpuscular Hgb Conc. 32.8 g/dL (32.0-36.0); Nucleated Red Blood Cells % 0.1 %
[2022-10-03 01:05] LABS: Basophils # (auto) 0 10 ^3/uL (0-0.2); Basophils % (auto) 0.3 % (0.0-2.0); Eosinophils # (auto) 0.1 10 ^3/uL (0-0.8); Eosinophils % (auto) 1.1 % (0.0-7.0); Hematocrit 41.8 % (41.0-53.0); Lymphocytes # (auto) 3.6 10 ^3/uL (0.4-5.4); Mean Corpuscular Volume 93.9 fL (80.0-100.0); Monocytes # (auto) 0.7 10 ^3/uL (0-1.3); Monocytes % (auto) 6.5 % (0.0-12.0); Neutrophils % (auto) 61.1 % (37.0-80.0); Red Blood Cells 4.46 10^6/uL (4.5-5.90); Red Cell Distribution Width 13.5 % (11.8-14.3); White Blood Cell 11.4 10^3/uL (4.4-10.8)
[2022-10-03 01:13] LABS: Albumin 2.9 g/dL (3.4-5.0); BUN/Creatinine Ratio 20.2 (10.0-20.0); Calcium 7.9 mg/dL (8.5-10.1); Potassium 4.1 mmol/L (3.5-5.1)
[2022-10-03 01:16] LABS: Bilirubin, Total 0.3 mg/dL (0.2-1.0)
[2022-10-03] MEDS ORDERED: TEMAZEPAM 15 MG CAP PO PRN (04:45)
[2022-10-03] MEDS ORDERED: FUROSEMIDE 40 MG/4 ML VIAL IV ONE (04:45)
[2022-10-03] MEDS ORDERED: NITROGLYCERIN 0.4 MG SL TAB SL PRN (04:45)
[2022-10-03] MEDS ORDERED: ACETAMINOPHEN 325 MG TAB PO PRN (04:45)
[2022-10-03] MEDS ORDERED: DEXTROSE (50%) 50ML SYRG IV PRN (04:45)
[2022-10-03] MEDS ORDERED: MORPHINE SULFATE INJ 2 MG/ml SYRG IV PRN (04:45)
[2022-10-03] MEDS ORDERED: ONDANSETRON HCL 4 MG/2 ML VIAL IV PRN (04:45)
[2022-10-03] MEDS: InsuLIN REG 1unit/0.01ml Soln (100units/ml) SC SCH ×3 (06:40→17:40)
[2022-10-03] MEDS: ACCU-CHEK COMFORT CURVE STRIP VI SCH ×3 (06:40→17:40)
[2022-10-03] MEDS: LISINOPRIL 20 MG TAB PO SCH (09:40)
[2022-10-03] MEDS: CARVEDILOL 3.125 MG TAB PO SCH ×2 (09:41→22:26)
[2022-10-03] MEDS: ENOXAPARIN SOD 40 MG/0.4 ML SYRINGE SC SCH (09:41)
[2022-10-03] MEDS ORDERED: PANTOPRAZOLE 40 MG TAB PO SCH (10:00)
[2022-10-03] MEDS: FUROSEMIDE 20 MG/2 ML VIAL IV SCH (17:48)
[2022-10-03] MEDS: ATORVASTATIN 20 MG TAB PO SCH (22:25)
[2022-10-04] MEDS: ACCU-CHEK COMFORT CURVE STRIP VI SCH ×5 (00:13→23:47)
[2022-10-04] MEDS: InsuLIN REG 1unit/0.01ml Soln (100units/ml) SC SCH ×5 (05:53→23:49)
[2022-10-04] MEDS: FUROSEMIDE 20 MG/2 ML VIAL IV SCH ×2 (05:53→18:00)
[2022-10-04] MEDS: HYDROcodone-ACET 5/325MG TAB PO PRN ×3 (06:07→20:42)
[2022-10-04 06:29] LABS: Basophils # (auto) 0 10 ^3/uL (0-0.2); Basophils % (auto) 0.4 % (0.0-2.0); Eosinophils # (auto) 0.1 10 ^3/uL (0-0.8); Eosinophils % (auto) 1.4 % (0.0-7.0); Hemoglobin 13.8 g/dL (13.5-17.5); Lymphocytes % (auto) 24.1 % (10.0-50.0); Mean Corpuscular Hemoglobin 31.5 pg (28.0-32.0); Mean Corpuscular Hgb Conc. 33.8 g/dL (32.0-36.0); Mean Corpuscular Volume 93.4 fL (80.0-100.0); Monocytes # (auto) 0.6 10 ^3/uL (0-1.3); Monocytes % (auto) 7.3 % (0.0-12.0); Neutrophils # (auto) 5.6 10 ^3/uL (1.6-8.6); Neutrophils % (auto) 66.8 % (37.0-80.0); Nucleated Red Blood Cells % 0.3 %; Red Blood Cells 4.39 10^6/uL (4.5-5.90); Red Cell Distribution Width 13.8 % (11.8-14.3); White Blood Cell 8.4 10^3/uL (4.4-10.8)
[2022-10-04 06:44] LABS: Albumin 2.9 g/dL (3.4-5.0); Calcium 8.2 mg/dL (8.5-10.1); Potassium 4.5 mmol/L (3.5-5.1)
[2022-10-04 06:48] LABS: BUN/Creatinine Ratio 23.9 (10.0-20.0); Bilirubin, Total 0.4 mg/dL (0.2-1.0); Total Protein 6.2 g/dL (6.4-8.2)
[2022-10-04] MEDS: LISINOPRIL 20 MG TAB PO SCH (11:03)
[2022-10-04] MEDS: ENOXAPARIN SOD 40 MG/0.4 ML SYRINGE SC SCH (11:03)
[2022-10-04] MEDS: CARVEDILOL 3.125 MG TAB PO SCH ×2 (11:04→21:30)
[2022-10-04 14:55] VITALS: BP 104/48
[2022-10-04 16:00] VITALS: BP 104/48
[2022-10-04 20:00] VITALS: BP 101/54
[2022-10-04] MEDS: ATORVASTATIN 20 MG TAB PO SCH (21:18)
[2022-10-04] MEDS: CARISOPRODOL 350 MG TAB PO PRN (21:18)
[2022-10-04 22:00] VITALS: BP 101/54
[2022-10-05 05:00] VITALS: BP 122/61
[2022-10-05] MEDS: InsuLIN REG 1unit/0.01ml Soln (100units/ml) SC SCH ×2 (06:00→12:00)
[2022-10-05] MEDS: FUROSEMIDE 20 MG/2 ML VIAL IV SCH (06:20)
[2022-10-05] MEDS: ACCU-CHEK COMFORT CURVE STRIP VI SCH ×2 (06:23→12:08)
[2022-10-05 09:00] VITALS: BP 129/46
[2022-10-05] MEDS: LISINOPRIL 20 MG TAB PO SCH (09:26)
[2022-10-05] MEDS: ENOXAPARIN SOD 40 MG/0.4 ML SYRINGE SC SCH (09:27)
[2022-10-05] MEDS: CARVEDILOL 3.125 MG TAB PO SCH (09:27)
[2022-10-05] MEDS: CARISOPRODOL 350 MG TAB PO PRN (10:48)
[2022-10-05] MEDS: HYDROcodone-ACET 5/325MG TAB PO PRN (10:48)
[2022-10-05] MEDS ORDERED: FURO1TAB31 PO (10:51)
== END 2022-10-05 16:50 | disposition home or self-care (01) | DRG 194 ==
LOC: ER 00:33 → TELE 04:47 → EDBD 04:47 → TELE-CENTR 10-04 14:50
PROVIDERS: ADMIT Nurse Practitioner; ATTEND Internal Medicine
DX: I11.0 Hypertensive heart disease with heart failure (principal); I24.9 Acute ischemic heart disease, unspecified; E11.9 Type 2 diabetes mellitus without complications; I50.33 Acute on chronic diastolic (congestive) heart failure; E78.5 Hyperlipidemia, unspecified; J44.9 Chronic obstructive pulmonary disease, unspecified; Z88.6 Allergy status to analgesic agent; Z88.8 Allergy status to other drugs, medicaments and biological substances
CPT/HCPCS: 36415; 71045; 80053; 82962; 83735; 83880; 84484; 85025; 85379; 93005; G0378; J1815

== ENCOUNTER 2022-10-11 01:08 | Emergency (ER) | payer MEDICAID ==
[~2022-10-11] VITALS: Ht 182.9 cm; Wt 136.2 kg
[~2022-10-11 01:08] MED LIST changes: -EMPA1TAB PO; +FURO1TAB31 PO
[2022-10-11 01:50] LABS: Basophils # (auto) 0 10 ^3/uL (0-0.2); Basophils % (auto) 0.3 % (0.0-2.0); Eosinophils # (auto) 0.1 10 ^3/uL (0-0.8); Eosinophils % (auto) 0.8 % (0.0-7.0); Hematocrit 43.4 % (41.0-53.0); Hemoglobin 14.3 g/dL (13.5-17.5); Lymphocytes # (auto) 2.2 10 ^3/uL (0.4-5.4); Lymphocytes % (auto) 17.1 % (10.0-50.0); Mean Corpuscular Hemoglobin 30.8 pg (28.0-32.0); Mean Corpuscular Hgb Conc. 32.9 g/dL (32.0-36.0); Mean Corpuscular Volume 93.7 fL (80.0-100.0); Monocytes # (auto) 1.1 10 ^3/uL (0-1.3); Monocytes % (auto) 8.7 % (0.0-12.0); Neutrophils # (auto) 9.3 10 ^3/uL (1.6-8.6); Neutrophils % (auto) 73.1 % (37.0-80.0); Red Blood Cells 4.64 10^6/uL (4.5-5.90); Red Cell Distribution Width 13.6 % (11.8-14.3); White Blood Cell 12.7 10^3/uL (4.4-10.8)
[2022-10-11 01:54] LABS: Albumin 3.2 g/dL (3.4-5.0); BUN/Creatinine Ratio 21.4 (10.0-20.0); Calcium 8.5 mg/dL (8.5-10.1); Potassium 3.8 mmol/L (3.5-5.1)
[2022-10-11 02:14] LABS: Bilirubin, Total 0.9 mg/dL (0.2-1.0); Total Protein 7.1 g/dL (6.4-8.2)
[2022-10-11 04:27] VITALS: BP 126/65
== END 2022-10-11 04:52 | disposition home or self-care (01) ==
LOC: EDBD 01:08 → ER 01:08
DX: R07.89 Other chest pain (principal); J44.9 Chronic obstructive pulmonary disease, unspecified; E11.9 Type 2 diabetes mellitus without complications; E78.5 Hyperlipidemia, unspecified; I11.0 Hypertensive heart disease with heart failure; I50.9 Heart failure, unspecified; Z98.890 Other specified postprocedural states; Z88.6 Allergy status to analgesic agent; Z79.1 Long term (current) use of non-steroidal anti-inflammatories (NSAID); Z79.82 Long term (current) use of aspirin; Z79.899 Other long term (current) drug therapy
CPT/HCPCS: 36415; 71045; 80053; 83880; 84484; 85025; 93005